=== PATIENT | female | born 1935 | race Caucasian/White ===

== ENCOUNTER 2018-01-16 13:51 | Inpatient (IN) | payer MEDICARE, OTHER ==
--- NOTE | 2018-01-16 14:15 | ER Document Report ---
ED General - General Mode of Arrival: Medic Information source: Patient, Relative <ABDIRIZAK WHITELIS - Last Filed: 01/16/18 15:40> <ROSALBADONNA - Last Filed: 01/16/18 17:26> - General Stated Complaint: WEAKNESS Time Seen by Provider: 01/16/18 14:04 Notes: Patient is an 82 year old female presenting to the emergency department accompanied by son complaining of weakness and altered mental status. Son states the patient has been complaining of a possible bladder infection for a few weeks and has yet to see a provider for it. He also states the patient appears to be very weak onset 2 days ago. Patient states she only feels weak and has had a decreased appetite since her approximately 3 weeks ago. Today, son states he was going to take the patient to urgent care after holiness but she was too weak to get into his car and proceeded to call EMS. Son further states the patient is not behaving like normal at bedside stating she normally has more energy and describes her as a jokester. (CHARLY WHITE) - Related Data Allergies/Adverse Reactions: No Known Allergies Allergy (Verified 01/16/18 14:34) Past Medical History - General Information source: Patient - Social History Smoking Status: Unknown if Ever Smoked Lives with: Alone - Spouse recently as of 01/16/2018 Family History: Reviewed & Not Pertinent - Past Medical History Cardiac Medical History: Reports: Hx Congestive Heart Failure - Question of CHF , Hx Hypercholesterolemia, Hx Hypertension Endocrine Medical History: Reports: Hx Hypothyroidism GI Medical History: Reports: Hx Gastroesophageal Reflux Disease Musculoskeletal Medical History: Reports Hx Gout Psychiatric Medical History: Reports: Hx Depression Past Surgical History: Reports: Hx Orthopedic Surgery - Bilateral total knee replacement, Hx Tubal Ligation, Other - Hysterectomy <CHARLY WHITE - Last Filed: 01/16/18 15:40> Review of Systems - Review of Systems Constitutional: See HPI, Weakness EENT: No symptoms reported Cardiovascular: No symptoms reported Respiratory: No symptoms reported Gastrointestinal: See HPI, Poor appetite Genitourinary: No symptoms reported Female Genitourinary: No symptoms reported Musculoskeletal: No symptoms reported Skin: No symptoms reported Hematologic/Lymphatic: No symptoms reported Neurological/Psychological: See HPI -: Yes All other systems reviewed and negative <CHARLY WHITE - Last Filed: 01/16/18 15:40> Physical Exam - General General appearance: Alert, Other - Appears fatigued In distress: None - HEENT Head: Normocephalic, Atraumatic Eyes: Normal Conjunctiva: Normal Extraocular movements intact: Yes Pupils: PERRL Mucous membranes: Dry Neck: Normal - Respiratory Respiratory status: No respiratory distress Chest status: Nontender Breath sounds: Normal Chest palpation: Normal - Cardiovascular Rhythm: Regular Heart sounds: Normal auscultation Murmur: No Friction rub: No Gallop: None auscultated - Abdominal Inspection: Obese Distension: No distension Bowel sounds: Normal Tenderness: Nontender Organomegaly: No organomegaly - Back Back: Normal - Extremities General upper extremity: Normal ROM General lower extremity: Edema - Lower leg and ankle bilaterally, Normal ROM - Neurological Neuro grossly intact: Yes Cognition: Normal Orientation: AAOx4 [place] Coma Scale Eye Opening: Spontaneous [place] Coma Scale Verbal: Oriented [place] Coma Scale Motor: Obeys Commands [place] Coma Scale Total: 15 Speech: Normal - Psychological Associated symptoms: Normal affect, Normal mood - Skin Skin Temperature: Warm Skin Moisture: Dry Skin Color: Normal <CHARLY WHITE - Last Filed: 01/16/18 15:40> - Vital signs Vitals: Pulse Ox 97 01/16/18 14:03 Course - Laboratory Result Diagrams: 01/16/18 14:20 01/16/18 14:20 <CHARLY WHITE - Last Filed: 01/16/18 15:40> - Laboratory Result Diagrams: 01/16/18 14:20 01/16/18 14:20 - Diagnostic Test Radiology reviewed: Reports reviewed - Chest x-ray does not show an acute process - EKG Interpretation by [facility] EKG shows normal: Sinus rhythm, [place], Intervals, ST-T Waves. abnormal: QRS Complexes - Borderline R-wave progression in the anterior leads Rate: Normal - 71 Rhythm: NSR [place]/QRS: Left axis deviation - Consults Dr. Keita Time consulted: 16:30 Consulted provider: will come to ER <DONNA NAVARRETE - Last Filed: 01/16/18 17:26> - Vital Signs Vital signs: Temp Pulse Resp BP Pulse Ox 18 97/62 L 96 01/16/18 17:03 01/16/18 17:03 01/16/18 17:03 - Laboratory Laboratory results interpreted by me: 01/16/18 01/16/18 01/16/18 14:20 14:20 14:20 WBC 23.8 H RDW 14.6 H Plt Count 84 L Seg Neuts % (Manual) 84 H Lymphocytes % (Manual) 5 L Abs Neuts (Manual) 20.0 H Abs Monocytes (Manual) 2.6 H Sodium 131.8 L Chloride 95 L BUN 41 H Creatinine 2.45 H Est GFR ( Amer) 23 L Est GFR (Non-Af Amer) 19 L Lactic Acid 2.5 H Calcium 8.3 L Total Bilirubin 1.8 H Direct Bilirubin 1.2 H AST 53 H Alkaline Phosphatase 169 H NT-Pro-B Natriuret Pep Total Protein 5.9 L Albumin 3.1 L Urine Protein Urine Blood Urine Urobilinogen Ur Leukocyte Esterase 01/16/18 01/16/18 14:20 15:20 WBC RDW Plt Count Seg Neuts % (Manual) Lymphocytes % (Manual) Abs Neuts (Manual) Abs Monocytes (Manual) Sodium Chloride BUN Creatinine Est GFR ( Amer) Est GFR (Non-Af Amer) Lactic Acid Calcium Total Bilirubin Direct Bilirubin AST Alkaline Phosphatase NT-Pro-B Natriuret Pep 3710 H Total Protein Albumin Urine Protein 100 H Urine Blood LARGE H Urine Urobilinogen 2.0 H Ur Leukocyte Esterase LARGE H Critical Care Note - Critical Care Note Total time excluding time spent on procedures (mins): 40 <DONNA NAVARRETE - Last Filed: 01/16/18 17:26> Discharge <CHARLY WHITE - Last Filed: 01/16/18 15:40> - Discharge Admitting Provider: Hospitalist Unit Admitted: IMCU <DONNA NAVARRETE - Last Filed: 01/16/18 17:26> - Discharge Clinical Impression: Urinary tract infection Qualifiers: Urinary tract infection type: site unspecified Hematuria presence: with hematuria Qualified Code(s): N39.0 - Urinary tract infection, site not specified Leukocytosis Qualifiers: Leukocytosis type: unspecified Qualified Code(s): D72.829 - Elevated white blood cell count, unspecified Hypotension Qualifiers: Hypotension type: unspecified hypotension type Qualified Code(s): I95.9 - Hypotension, unspecified Sepsis Qualifiers: Sepsis type: sepsis due to unspecified organism Qualified Code(s): A41.9 - Sepsis, unspecified organism Depression Qualifiers: Depression Type: unspecified Qualified Code(s): F32.9 - Major depressive disorder, single episode, unspecified Condition: Good Disposition: ADMITTED INPATIENT Scribe Attestation: 01/16/18 15:50 I personally performed the services described in the documentation, reviewed and edited the documentation which was dictated to the scribe in my presence, and it accurately records my words and actions. (DONNA NAVARRETE) Scribe Documentation - Scribe Written by Vamshi:: Vamshi Pickering, 01/16/2018 14:24 acting as scribe for :: Rosalba <CHARLY WHITE - Last Filed: 01/16/18 15:40>
[2018-01-16 14:41] LABS: HEMOGLOBIN 15.2 g/dL (12.0-15.5); MEAN CORPUSCULAR HEMOGLOBIN 28.9 pg (27.0-33.4); MEAN CORPUSCULAR HGB CONC 33.8 g/dL (32.0-36.0); MEAN CORPUSCULAR VOLUME 85 fl (80-97); RED BLOOD COUNT 5.27 10^6/uL (3.72-5.28); RED CELL DISTRIBUTION WIDTH 14.6 % (11.5-14.0); WHITE BLOOD COUNT 23.8 10^3/uL (4.0-10.5)
[2018-01-16 14:49] LABS: VENOUS BLOOD BASE EXCESS -1.5 mmol/L; VENOUS BLOOD HCO3 22.5 mmol/L (20-32); VENOUS BLOOD PCO2 36.1 mmHg (35-63); VENOUS BLOOD PH 7.41 (7.30-7.42)
[2018-01-16 14:57] LABS: ALANINE AMINOTRANSFERASE 39 U/L (9-52); ALBUMIN 3.1 g/dL (3.5-5.0); ALKALINE PHOSPHATASE 169 U/L (38-126); ANION GAP 13 (5-19); ASPARTATE AMINO TRANSFERASE 53 U/L (14-36); BILIRUBIN,DIRECT 1.2 mg/dL (0.0-0.4); BILIRUBIN,TOTAL 1.8 mg/dL (0.2-1.3); BLOOD UREA NITROGEN 41 mg/dL (7-20); CALCIUM 8.3 mg/dL (8.4-10.2); CARBON DIOXIDE 24 mmol/L (22-30); CHLORIDE 95 mmol/L (98-107); CREATINE KINASE 80 U/L (30-135); GLUCOSE 77 mg/dL (75-110); SODIUM 131.8 mmol/L (137-145); TOTAL PROTEIN 5.9 g/dL (6.3-8.2)
[2018-01-16 15:05] LABS: PLATELET COUNT 84 10^3/uL (150-450)
[2018-01-16 15:09] LABS: TROPONIN I 0.015 ng/mL
--- NOTE | 2018-01-16 15:10 | RADIOLOGY REPORT (SQ) ---
EXAM DESCRIPTION: CHEST SINGLE VIEW COMPLETED DATE/TIME: 01/16/2018 2:44 pm REASON FOR STUDY: weak COMPARISON: None. EXAM PARAMETERS: NUMBER OF VIEWS: One view. TECHNIQUE: Single frontal radiographic view of the chest acquired. RADIATION DOSE: NA LIMITATIONS: None. FINDINGS: LUNGS AND PLEURA: No opacities, masses or pneumothorax. No pleural effusion. MEDIASTINUM AND HILAR STRUCTURES: No masses. Contour normal. HEART AND VASCULAR STRUCTURES: Heart normal in size. Normal vasculature. BONES: No acute findings. HARDWARE: None in the chest. OTHER: No other significant finding. IMPRESSION: NO ACUTE RADIOGRAPHIC FINDING IN THE CHEST. TECHNICAL DOCUMENTATION: JOB ID: [id number] [employer]- All Rights Reserved Reading location - IP/workstation name: [email or web address]
[2018-01-16 15:11] LABS: ABSOLUTE LYMPHOCYTES# (MANUAL) 1.2 10^3/uL (0.5-4.7); ABSOLUTE MONOCYTES # (MANUAL) 2.6 10^3/uL (0.1-1.4); BASOPHILS % (MANUAL) 0 % (0-2); EOSINOPHILS % (MANUAL) 0 % (0-6); LYMPHOCYTES % (MANUAL) 5 % (13-45); MONOCYTES % (MANUAL) 11 % (3-13); SEGMENTED NEUTROPHILS % (MAN) 84 % (42-78); TOTAL CELLS COUNTED 100
[2018-01-16 15:14] LABS: ANISOCYTOSIS SLIGHT; PLATELET COMMENT DECREASED; TOXIC GRANULATION 1+; TOXIC VACUOLATION PRESENT
[2018-01-16] MEDS ORDERED: NORMAL SALINE 1000 ML 1,000 ML IV ONE (15:34)
[2018-01-16] MEDS ORDERED: ERTAPENEM SODIUM INJ 1 GM VIAL IV ONE (15:34)
[2018-01-16 16:00] LABS: APPEARANCE,URINE CLOUDY; BILIRUBIN,URINE NEGATIVE (NEGATIVE); COLOR,URINE DARK YELLOW; GLUCOSE, URINE NEGATIVE (NEGATIVE); KETONES,URINE NEGATIVE (NEGATIVE); LEUKOCYTE ESTERASE,URINE LARGE (NEGATIVE); NITRITE,URINE NEGATIVE (NEGATIVE); PROTEIN,URINE 100 mg/dL (NEGATIVE)
[2018-01-16 17:37] LABS: PHOSPHORUS 3.9 mg/dL (2.5-4.5)
--- NOTE | 2018-01-16 18:08 | PDOC H&P ---
History of Present Illness Admission Date/PCP: 01/16/18 17:07 Patient complains of: weakeness, urinary symptoms History of Present Illness: JENNY TERRY is a 82 year old female with history of HTN and depression who presents with worsening urinary symptoms, weakness, and decreased PO intake. Patient states that a few weeks ago she developed urinary frequency and dysuria. Her son gave her cranberry juice over this time period. Feels that her symptoms were improved. However over the last 48 hours, states that she got progressively weaker. Had poor PO intake, chils, and inability to ambulate. States that dysuria has gotten worse. Denies blood in her urine. Also no fevers , CP, SOB, abdominal pain, NV. patient does not have history of frequent/ recurrent UTIs. Of note patients 2 weeks ago. States that her mood is OK and she is coping as well as she can. Daughter and son in law at bedside. Admitted to [facility] under hospitalist care. Past Medical History Cardiac Medical History: Reports: Congestive Heart Failure - Question of CHF, Hyperlipidema, Hypertension Endocrine Medical History: Reports: Hypothyroidism GI Medical History: Reports: Gastroesophageal Reflux Disease Musculoskeltal Medical History: Reports: Gout Psychiatric Medical History: Reports: Depression Past Surgical History Past Surgical History: Reports: Orthopedic Surgery - Bilateral total knee replacement, Tubal Ligation, Other - Hysterectomy Social History Information Source: Patient Lives with: Alone - Spouse recently as of 01/16/2018 Smoking Status: Unknown if Ever Smoked Frequency of Alcohol Use: Rare Hx Recreational Drug Use: No - Advance Directive Resuscitation Status: DNI/DNR Family History Family History: Reviewed & Not Pertinent Parental Family History Reviewed: No Children Family History Reviewed: NA Sibling(s) Family History Reviewed.: NA Medication/Allergy Allergies/Adverse Reactions: No Known Allergies Allergy (Verified 01/16/18 14:34) Review of Systems All systems: reviewed and no additional remarkable complaints except as stated Physical Exam Vital Signs: Temp Pulse Resp BP Pulse Ox 18 97/62 L 96 01/16/18 17:03 01/16/18 17:03 01/16/18 17:03 General appearance: PRESENT: no acute distress, cooperative, obese, other - Pleasant Head exam: PRESENT: atraumatic, normocephalic Mouth exam: PRESENT: moist Neck exam: PRESENT: full ROM. ABSENT: tenderness Respiratory exam: PRESENT: unlabored, other. ABSENT: wheezes Cardiovascular exam: PRESENT: +S1, +S2. ABSENT: tachycardia GI/Abdominal exam: PRESENT: normal bowel sounds, soft. ABSENT: tenderness Extremities exam: PRESENT: +1 edema Neurological exam: PRESENT: alert, awake, CN II-XII grossly intact. ABSENT: aphasic Psychiatric exam: PRESENT: appropriate affect, depressed - Slightly depressed Skin exam: PRESENT: dry, intact Results Laboratory Results: labs reviewed on chart Labs- All tests 24 hr 01/16/18 01/16/18 01/16/18 14:20 14:20 14:20 WBC 23.8 H RBC 5.27 Hgb 15.2 Hct 45.0 MCV 85 MCH 28.9 MCHC 33.8 RDW 14.6 H Plt Count 84 L Total Counted 100 Seg Neutrophils % Not Reportable Seg Neuts % (Manual) 84 H Lymphocytes % Not Reportable Lymphocytes % (Manual) 5 L Monocytes % Not Reportable Monocytes % (Manual) 11 Eosinophils % Not Reportable Eosinophils % (Manual) 0 Basophils % Not Reportable Basophils % (Manual) 0 Absolute Neutrophils Not Reportable Abs Neuts (Manual) 20.0 H Absolute Lymphocytes Not Reportable Abs Lymphs (Manual) 1.2 Absolute Monocytes Not Reportable Abs Monocytes (Manual) 2.6 H Absolute Eosinophils Not Reportable Absolute Eos (Manual) 0.0 Absolute Basophils Not Reportable Abs Basophils (Manual) 0.0 Toxic Granulation 1+ Toxic Vacuolation PRESENT Platelet Comment DECREASED Anisocytosis SLIGHT VBG pH VBG pCO2 VBG HCO3 VBG Base Excess Sodium 131.8 L Potassium 4.0 Chloride 95 L Carbon Dioxide 24 Anion Gap 13 BUN 41 H Creatinine 2.45 H Est GFR ( Amer) 23 L Est GFR (Non-Af Amer) 19 L Glucose 77 Lactic Acid 2.5 H Calcium 8.3 L Phosphorus Magnesium Total Bilirubin 1.8 H Direct Bilirubin 1.2 H Neonat Total Bilirubin Not Reportable Neonat Direct Bilirubin Not Reportable Neonat Indirect Bili Not Reportable AST 53 H ALT 39 Alkaline Phosphatase 169 H Creatine Kinase 80 Troponin I NT-Pro-B Natriuret Pep Total Protein 5.9 L Albumin 3.1 L Urine Color Urine Appearance Urine pH Ur Specific [place] Urine Protein Urine Glucose (UA) Urine Ketones Urine Blood Urine Nitrite Urine Bilirubin Urine Urobilinogen Ur Leukocyte Esterase Urine WBC (Auto) Urine RBC (Auto) Urine Bacteria (Auto) Urine WBC Clumps Squamous Epi Cells Auto U Non-Squamous Epis Auto Urine Mucus (Auto) Urine Ascorbic Acid 01/16/18 01/16/18 01/16/18 14:20 14:20 14:20 WBC RBC Hgb Hct MCV MCH MCHC RDW Plt Count Total Counted Seg Neutrophils % Seg Neuts % (Manual) Lymphocytes % Lymphocytes % (Manual) Monocytes % Monocytes % (Manual) Eosinophils % Eosinophils % (Manual) Basophils % Basophils % (Manual) Absolute Neutrophils Abs Neuts (Manual) Absolute Lymphocytes Abs Lymphs (Manual) Absolute Monocytes Abs Monocytes (Manual) Absolute Eosinophils Absolute Eos (Manual) Absolute Basophils Abs Basophils (Manual) Toxic Granulation Toxic Vacuolation Platelet Comment Anisocytosis VBG pH 7.41 VBG pCO2 36.1 VBG HCO3 22.5 VBG Base Excess -1.5 Sodium Potassium Chloride Carbon Dioxide Anion Gap BUN Creatinine Est GFR ( Amer) Est GFR (Non-Af Amer) Glucose Lactic Acid Calcium Phosphorus 3.9 Magnesium 1.3 L Total Bilirubin Direct Bilirubin Neonat Total Bilirubin Neonat Direct Bilirubin Neonat Indirect Bili AST ALT Alkaline Phosphatase Creatine Kinase Troponin I 0.015 NT-Pro-B Natriuret Pep 3710 H Total Protein Albumin Urine Color Urine Appearance Urine pH Ur Specific [place] Urine Protein Urine Glucose (UA) Urine Ketones Urine Blood Urine Nitrite Urine Bilirubin Urine Urobilinogen Ur Leukocyte Esterase Urine WBC (Auto) Urine RBC (Auto) Urine Bacteria (Auto) Urine WBC Clumps Squamous Epi Cells Auto U Non-Squamous Epis Auto Urine Mucus (Auto) Urine Ascorbic Acid 01/16/18 15:20 WBC RBC Hgb Hct MCV MCH MCHC RDW Plt Count Total Counted Seg Neutrophils % Seg Neuts % (Manual) Lymphocytes % Lymphocytes % (Manual) Monocytes % Monocytes % (Manual) Eosinophils % Eosinophils % (Manual) Basophils % Basophils % (Manual) Absolute Neutrophils Abs Neuts (Manual) Absolute Lymphocytes Abs Lymphs (Manual) Absolute Monocytes Abs Monocytes (Manual) Absolute Eosinophils Absolute Eos (Manual) Absolute Basophils Abs Basophils (Manual) Toxic Granulation Toxic Vacuolation Platelet Comment Anisocytosis VBG pH VBG pCO2 VBG HCO3 VBG Base Excess Sodium Potassium Chloride Carbon Dioxide Anion Gap BUN Creatinine Est GFR ( Amer) Est GFR (Non-Af Amer) Glucose Lactic Acid Calcium Phosphorus Magnesium Total Bilirubin Direct Bilirubin Neonat Total Bilirubin Neonat Direct Bilirubin Neonat Indirect Bili AST ALT Alkaline Phosphatase Creatine Kinase Troponin I NT-Pro-B Natriuret Pep Total Protein Albumin Urine Color DARK YELLOW Urine Appearance CLOUDY Urine pH 5.0 Ur Specific [place] 1.020 Urine Protein 100 H Urine Glucose (UA) NEGATIVE Urine Ketones NEGATIVE Urine Blood LARGE H Urine Nitrite NEGATIVE Urine Bilirubin NEGATIVE Urine Urobilinogen 2.0 H Ur Leukocyte Esterase LARGE H Urine WBC (Auto) >182 Urine RBC (Auto) >182 Urine Bacteria (Auto) 1+ Urine WBC Clumps MANY Squamous Epi Cells Auto 2 U Non-Squamous Epis Auto 2 Urine Mucus (Auto) RARE Urine Ascorbic Acid NEGATIVE Impressions: Chest X-Ray 01/16/18 14:15 IMPRESSION: NO ACUTE RADIOGRAPHIC FINDING IN THE CHEST. Assessment & Plan - Diagnosis (1) Urinary tract infection Qualifiers: Urinary tract infection type: site unspecified Hematuria presence: with hematuria Qualified Code(s): N39.0 - Urinary tract infection, site not specified; R31.9 - Hematuria, unspecified; R31.9 - Hematuria, unspecified Is this a current diagnosis for this admission?: Yes Plan: History and UA consistent with UTI - Will follow Urine cx for sensitivities and speciation - Received Ertapenem * 1 dose in ED. Started on Ceftriaxone IV. - No history of MRSA. - If patient decompensates would broaden coverage - Blood culture obtained (2) KAMI (acute kidney injury) Is this a current diagnosis for this admission?: Yes Plan: Unclear baseline. Likely pre-renal given recent poor PO intake. Will give IVF. Avoid overhydration given questionable history of CHF (3) Depression Qualifiers: Depression Type: unspecified Qualified Code(s): F32.9 - Major depressive disorder, single episode, unspecified (4) Hypotension Qualifiers: Hypotension type: unspecified hypotension type Qualified Code(s): I95.9 - Hypotension, unspecified Is this a current diagnosis for this admission?: Yes Plan: Likely due to infection and poor PO intake - GIve IVF. No indication for pressor support at this time (5) Leukocytosis Qualifiers: Leukocytosis type: unspecified Qualified Code(s): D72.829 - Elevated white blood cell count, unspecified Is this a current diagnosis for this admission?: Yes Plan: Secondary to infection - Treatment per above - Repeat CBC and lactate in AM (6) Troponin level elevated Is this a current diagnosis for this admission?: Yes Plan: No active CP. - Likely secondary to acute infection - Will check 2nd troponin. CTM - Time Time Spent: Greater than 70 Minutes Critical Time spent with patient: 15-24 minutes Anticipated discharge: Home with Homehealth, SNF - Will have PT evaluation - Inpatient Certification Medical Necessity: Need for IV Antibiotics
[2018-01-16] MEDS: NORMAL SALINE 1000 ML 1,000 ML IV SCH ×2 (18:10→18:11)
[2018-01-16] MEDS: ACETAMINOPHEN 325 MG TABLET PO PRN (18:47)
[2018-01-16 21:27] LABS: CREATINE KINASE MB 2.41 ng/mL (<4.55); TROPONIN I 0.021 ng/mL
[2018-01-16] MEDS: HEPARIN SOD (PORCINE) 5,000 UNIT/ML 1 ML SYRINGE SUBCUT SCH (22:26)
[2018-01-17 03:23] LABS: HEMATOCRIT 40.6 % (36.0-47.0); HEMOGLOBIN 13.7 g/dL (12.0-15.5); MEAN CORPUSCULAR HEMOGLOBIN 28.8 pg (27.0-33.4); MEAN CORPUSCULAR HGB CONC 33.8 g/dL (32.0-36.0); MEAN CORPUSCULAR VOLUME 85 fl (80-97); RED BLOOD COUNT 4.77 10^6/uL (3.72-5.28); RED CELL DISTRIBUTION WIDTH 14.5 % (11.5-14.0)
[2018-01-17 03:36] LABS: ALANINE AMINOTRANSFERASE 41 U/L (9-52); ALBUMIN 2.5 g/dL (3.5-5.0); ALKALINE PHOSPHATASE 139 U/L (38-126); ANION GAP 12 (5-19); ASPARTATE AMINO TRANSFERASE 59 U/L (14-36); BILIRUBIN,DIRECT 0.9 mg/dL (0.0-0.4); BILIRUBIN,TOTAL 1.1 mg/dL (0.2-1.3); BLOOD UREA NITROGEN 46 mg/dL (7-20); CALCIUM 7.7 mg/dL (8.4-10.2); CARBON DIOXIDE 20 mmol/L (22-30); CHLORIDE 98 mmol/L (98-107); CREATINE KINASE 342 U/L (30-135); GLUCOSE 54 mg/dL (75-110); POTASSIUM 4.2 mmol/L (3.6-5.0); SODIUM 130.3 mmol/L (137-145); TOTAL PROTEIN 5.1 g/dL (6.3-8.2)
[2018-01-17 03:43] LABS: PLATELET COUNT 65 10^3/uL (150-450)
[2018-01-17 03:45] LABS: ABSOLUTE LYMPHOCYTES# (MANUAL) 0.5 10^3/uL (0.5-4.7); ABSOLUTE MONOCYTES # (MANUAL) 3.1 10^3/uL (0.1-1.4); ABSOLUTE NEUTROPHILS# (MANUAL) 20.4 10^3/uL (1.7-8.2); BASOPHILS % (MANUAL) 0 % (0-2); EOSINOPHILS % (MANUAL) 0 % (0-6); LYMPHOCYTES % (MANUAL) 2 % (13-45); MONOCYTES % (MANUAL) 13 % (3-13); SEGMENTED NEUTROPHILS % (MAN) 85 % (42-78); TOTAL CELLS COUNTED 100
[2018-01-17 03:48] LABS: CREATINE KINASE MB 1.36 ng/mL (<4.55); TROPONIN I 0.022 ng/mL
[2018-01-17 03:49] LABS: PLATELET COMMENT DECREASED; RBC MORPHOLOGY COMMENT NORMO-CYTIC/CHROMIC; TOXIC VACUOLATION PRESENT
[2018-01-17] MEDS: NORMAL SALINE 1000 ML 1,000 ML IV SCH ×2 (04:05→18:13)
[2018-01-17] MEDS: HEPARIN SOD (PORCINE) 5,000 UNIT/ML 1 ML SYRINGE SUBCUT SCH ×3 (05:08→21:31)
[2018-01-17] MEDS: CEFTRIAXONE SODIUM 1,000 MG in DEXTROSE 5%-WATER 50 ML IV SCH (09:09)
[2018-01-17] MEDS ORDERED: CEFTRIAXONE 1 GM/D5W RTU 1 GM/50 ML RTUPB IV SCH (10:00)
[2018-01-17 10:01] LABS: CREATINE KINASE MB 0.96 ng/mL (<4.55); TROPONIN I 0.024 ng/mL
--- NOTE | 2018-01-17 10:30 | PDOC PROGRESS REPORT ---
Subjective Progress Note for:: 01/17/18 Subjective:: I seen patient while she is resting in bed. She is awake alert oriented. She is not in pain or any form of acute cardiorespiratory distress. Patient admitted for urinary tract infection and acute kidney injury. Her blood and urine culture grew gram-negative rods. Sensitivity pattern is pending. Currently patient has been on ceftriaxone. Reason For Visit: SEPSIS,UTI,ARF Physical Exam Vital Signs: Temp Pulse Resp BP Pulse Ox 98.8 F 76 16 139/54 H 98 01/17/18 07:34 01/17/18 08:56 01/17/18 08:56 01/17/18 07:34 01/17/18 08:56 Intake & Output 01/16/18 01/17/18 01/18/18 06:59 06:59 06:59 Intake Total 1999 Balance 1999 Weight 86.5 kg General appearance: PRESENT: no acute distress Head exam: PRESENT: atraumatic Eye exam: PRESENT: conjunctiva pink Mouth exam: PRESENT: moist Neck exam: ABSENT: carotid bruit, JVD, lymphadenopathy, thyromegaly Respiratory exam: PRESENT: clear to auscultation cely. ABSENT: rales, rhonchi, wheezes Cardiovascular exam: PRESENT: RRR. ABSENT: diastolic murmur, rubs, systolic murmur GI/Abdominal exam: PRESENT: normal bowel sounds, soft. ABSENT: distended, guarding, mass, organolmegaly, rebound, tenderness Extremities exam: PRESENT: full ROM. ABSENT: calf tenderness, clubbing, pedal edema Neurological exam: PRESENT: alert, awake, oriented to time, oriented to situation Results Laboratory Results: 01/17/18 03:05 01/17/18 03:05 01/16/18 01/17/18 01/17/18 18:00 03:05 03:05 WBC 24.0 H RBC 4.77 Hgb 13.7 Hct 40.6 MCV 85 MCH 28.8 MCHC 33.8 RDW 14.5 H Plt Count 65 L Seg Neutrophils % Not Reportable Lymphocytes % Not Reportable Monocytes % Not Reportable Eosinophils % Not Reportable Basophils % Not Reportable Absolute Neutrophils Not Reportable Absolute Lymphocytes Not Reportable Absolute Monocytes Not Reportable Absolute Eosinophils Not Reportable Absolute Basophils Not Reportable Sodium 130.3 L Potassium 4.2 Chloride 98 Carbon Dioxide 20 L Anion Gap 12 BUN 46 H Creatinine 2.36 H Est GFR ( Amer) 24 L Est GFR (Non-Af Amer) 20 L Glucose 54 L Lactic Acid 1.7 Calcium 7.7 L Total Bilirubin 1.1 AST 59 H ALT 41 Alkaline Phosphatase 139 H Total Protein 5.1 L Albumin 2.5 L 01/17/18 03:05 WBC RBC Hgb Hct MCV MCH MCHC RDW Plt Count Seg Neutrophils % Lymphocytes % Monocytes % Eosinophils % Basophils % Absolute Neutrophils Absolute Lymphocytes Absolute Monocytes Absolute Eosinophils Absolute Basophils Sodium Potassium Chloride Carbon Dioxide Anion Gap BUN Creatinine Est GFR ( Amer) Est GFR (Non-Af Amer) Glucose Lactic Acid 1.3 Calcium Total Bilirubin AST ALT Alkaline Phosphatase Total Protein Albumin 01/16/18 01/16/18 01/17/18 20:45 20:45 03:05 Creatine Kinase 364 H CK-MB (CK-2) 2.41 1.36 Troponin I 0.021 0.022 01/17/18 01/17/18 01/17/18 03:05 09:05 09:05 Creatine Kinase 342 H 264 H CK-MB (CK-2) 0.96 Troponin I 0.024 Impressions: Chest X-Ray 01/16/18 14:15 IMPRESSION: NO ACUTE RADIOGRAPHIC FINDING IN THE CHEST. Assessment & Plan - Diagnosis (1) Gram-negative bacteremia Is this a current diagnosis for this admission?: Yes Plan: Patient admitted for weakness and dysuria. Her blood culture grew gram- negative rods. Patient has been on ceftriaxone and will adjust antibiotics based on her clinical response and sensitivity pattern. (2) UTI (urinary tract infection) Qualifiers: Indwelling urinary catheter type: unspecified Is this a current diagnosis for this admission?: Yes Plan: Urine culture grew gram-negative rods. We will continue ceftriaxone until sensitivity pattern report. (3) KAMI (acute kidney injury) Is this a current diagnosis for this admission?: Yes Plan: Most probably prerenal azotemia. We do not know her baseline kidney function. Patient is being hydrated cautiously. (4) Leukocytosis Qualifiers: Leukocytosis type: unspecified Qualified Code(s): D72.829 - Elevated white blood cell count, unspecified Is this a current diagnosis for this admission?: Yes Plan: Trending down. (5) Troponin level elevated Is this a current diagnosis for this admission?: Yes Plan: Is a borderline elevation most probably due to demand ischemia. (6) Hypothyroidism Is this a current diagnosis for this admission?: Yes Plan: Continue Synthroid
[2018-01-17] MEDS: IPRATROPIUM/ALBUTEROL 0.5-2.5 MG/3 ML AMPUL NEB PRN (14:07)
[2018-01-17] MEDS: ACETAMINOPHEN 325 MG TABLET PO PRN (19:43)
[2018-01-18 05:24] LABS: HEMATOCRIT 43.1 % (36.0-47.0); HEMOGLOBIN 14.7 g/dL (12.0-15.5); MEAN CORPUSCULAR HGB CONC 34.1 g/dL (32.0-36.0); MEAN CORPUSCULAR VOLUME 85 fl (80-97); RED BLOOD COUNT 5.07 10^6/uL (3.72-5.28); RED CELL DISTRIBUTION WIDTH 14.7 % (11.5-14.0); WHITE BLOOD COUNT 17.9 10^3/uL (4.0-10.5)
[2018-01-18] MEDS: HEPARIN SOD (PORCINE) 5,000 UNIT/ML 1 ML SYRINGE SUBCUT SCH ×3 (05:24→21:06)
[2018-01-18 05:56] LABS: ABSOLUTE LYMPHOCYTES# (MANUAL) 0.5 10^3/uL (0.5-4.7); ABSOLUTE MONOCYTES # (MANUAL) 1.6 10^3/uL (0.1-1.4); ABSOLUTE NEUTROPHILS# (MANUAL) 15.8 10^3/uL (1.7-8.2); BASOPHILS % (MANUAL) 0 % (0-2); EOSINOPHILS % (MANUAL) 0 % (0-6); LYMPHOCYTES % (MANUAL) 3 % (13-45); MONOCYTES % (MANUAL) 9 % (3-13); SEGMENTED NEUTROPHILS % (MAN) 88 % (42-78); TOTAL CELLS COUNTED 100
[2018-01-18 05:57] LABS: RBC MORPHOLOGY COMMENT NORMO-CYTIC/CHROMIC
[2018-01-18 05:58] LABS: PLATELET COMMENT DECREASED; TOXIC VACUOLATION PRESENT
[2018-01-18 06:53] LABS: PLATELET COUNT 64 10^3/uL (150-450)
--- NOTE | 2018-01-18 09:41 | XCELERA REPORT ---
[address] [address] Transthoracic Echocardiogram Report Name: JENNY TERRY Age: 82 yrs Gender: Female : 1935 Patient Status: Inpatient Patient Location: [address] [place] [address] Study Date: 01/18/2018 08:37 AM Procedure: A complete two-dimensional transthoracic echocardiogram was performed (2D, M-mode, spectral and color flow Doppler). The study was technically adequate with some images being suboptimal in quality. Reason For Study: CHF Ordering Physician: LOLITA KNIGHT Performed By: Marilyn Amezquita Interpretation Summary The left ventricular ejection fraction is normal. There is borderline concentric left ventricular hypertrophy. The left ventricle is grossly normal size. Doppler measurements suggest pseudonormalized left ventricular relaxation, which is associated with grade II/IV or mild to moderate diastolic dysfunction Wall motion cannot be accurately commented on, but no definite regional wall motion abnormalities noted. The right ventricle is mildly dilated. The right ventricle appears to be hypertrophied The right ventricular systolic function is normal. The right atrium is mildly dilated. The left atrial size is normal. There is no mitral valve stenosis. There is a trace amount of mitral regurgitation There is no aortic valve stenosis No aortic regurgitation is present. There is a mild amount of tricuspid regurgitation There is mild pulmonary hypertension by echo There is no pericardial effusion. MMode/2D Measurements & Calculations RVDd: 3.4 cm LVIDd: 4.4 cm FS: 34.4 % Ao root diam: 2.7 cm IVSd: 1.1 cm LVIDs: 2.9 cm EDV(Teich): 85.6 ml Ao root area: 5.6 cm2 LVPWd: 1.0 cm ESV(Teich): 31.1 ml EF(Teich): 63.7 % LVOT diam: 1.6 cm LVOT area: 2.1 cm2 Doppler Measurements & Calculations MV E max zeny: MV dec slope: Ao V2 max: LV V1 max P.5 cm/sec 110.2 cm/sec 3.7 mmHg MV A max zeny: 211.3 cm/sec2 Ao max PG: LV V1 max: 110.2 cm/sec MV dec time: 5.0 mmHg 96.3 cm/sec MV E/A: 0.51 0.27 sec HAL(V,D): 1.8 cm2 PA V2 max: TR max zeny: 85.9 cm/sec 274.2 cm/sec PA max P.0 mmHg TR max P.2 mmHg Left Ventricle The left ventricle is grossly normal size. There is borderline concentric left ventricular hypertrophy. The left ventricular ejection fraction is normal. Doppler measurements suggest pseudonormalized left ventricular relaxation, which is associated with grade II/IV or mild to moderate diastolic dysfunction. Wall motion cannot be accurately commented on, but no definite regional wall motion abnormalities noted. Right Ventricle The right ventricle is mildly dilated. The right ventricle appears to be hypertrophied. The right ventricular systolic function is normal. Atria The right atrium is mildly dilated. The left atrial size is normal. Interarterial septum not well visualized and not well dopplered. Cannot comment on ASD/PFO presence. Mitral Valve The mitral valve is grossly normal. There is no mitral valve stenosis. There is a trace amount of mitral regurgitation. Aortic Valve The aortic valve is not well visualized secondary to technical limitations. There is no aortic valve stenosis. No aortic regurgitation is present. Tricuspid Valve The tricuspid valve is not well visualized, but is grossly normal. There is no tricuspid stenosis. There is a mild amount of tricuspid regurgitation. There is mild pulmonary hypertension by echo. Best estimated RVSP is approximately 40 mm/Hg. Pulmonic Valve The pulmonic valve is not well visualized. Great Vessels The aortic root is not well visualized but is probably normal size. The inferior vena cava was not well visualized. Effusions There is no pericardial effusion. : LOLITA KNIGHT > Kierra Rodriguez
[2018-01-18] MEDS ORDERED: (PENDING PHARMACY ID) (Escitalopram Oxalate [Lexapro] 10 MG) PO SCH (10:00)
[2018-01-18] MEDS ORDERED: (PENDING PHARMACY ID) (Calcium Carbonate/Vitamin D3 [Calcium 600 + Vit D 400 Tablet] 1 TAB PO SCH (10:00)
[2018-01-18] MEDS ORDERED: ACEBUTOLOL HCL 400 MG PO SCH (10:00)
--- NOTE | 2018-01-18 10:06 | EKG REPORT ---
SEVERITY:- BORDERLINE ECG - SINUS RHYTHM BORDERLINE LEFT AXIS DEVIATION BORDERLINE R WAVE PROGRESSION, ANTERIOR LEADS : Confirmed by: Kierra Rodriguez 18-Jan-2018 10:05:53
[2018-01-18 10:15] LABS: ABSOLUTE LYMPHOCYTES (AUTO) 1.2 10^3/uL (0.5-4.7); ABSOLUTE MONOCYTES (AUTO) 2.3 10^3/uL (0.1-1.4); ABSOLUTE NEUT (AUTO) 13.4 10^3/uL (1.7-8.2); BASOPHILS % (AUTO) 0.2 % (0-2); EOSINOPHILS % (AUTO) 0.2 % (0-6); HEMATOCRIT 42.3 % (36.0-47.0); LYMPHOCYTES % (AUTO) 6.8 % (13-45); MEAN CORPUSCULAR HEMOGLOBIN 28.1 pg (27.0-33.4); MEAN CORPUSCULAR HGB CONC 33.1 g/dL (32.0-36.0); MEAN CORPUSCULAR VOLUME 85 fl (80-97); MONOCYTES % (AUTO) 13.5 % (3-13); RED BLOOD COUNT 4.98 10^6/uL (3.72-5.28); RED CELL DISTRIBUTION WIDTH 14.6 % (11.5-14.0); SEGMENTED NEUTROPHILS % (AUTO) 79.3 % (42-78); TOTAL CELLS COUNTED % (AUTO) 100 %
[2018-01-18 10:50] LABS: ANION GAP 11 (5-19); BLOOD UREA NITROGEN 50 mg/dL (7-20); CALCIUM 7.7 mg/dL (8.4-10.2); CARBON DIOXIDE 19 mmol/L (22-30); CHLORIDE 99 mmol/L (98-107); GLUCOSE 104 mg/dL (75-110); PLATELET COUNT 67 10^3/uL (150-450); POTASSIUM 3.8 mmol/L (3.6-5.0); SODIUM 129.4 mmol/L (137-145)
[2018-01-18] MEDS ORDERED: ESCITALOPRAM OXALATE 10 MG TABLET PO ONE (11:00)
[2018-01-18] MEDS ORDERED: CALCIUM CARBONATE 250 MG/VITAMIN D3 125 UNIT TABLET PO ONE (11:00)
[2018-01-18] MEDS: CEFTRIAXONE SODIUM 1,000 MG in DEXTROSE 5%-WATER 50 ML IV SCH (11:11)
[2018-01-18] MEDS: BUPROPION HCL 75 MG TABLET PO SCH ×2 (11:19→23:55)
[2018-01-18] MEDS: POLYETHYLENE GLYCOL 3350 POWDER 17 GM/1 PACKET PO SCH (11:21)
--- NOTE | 2018-01-18 12:06 | PDOC PROGRESS REPORT ---
Subjective Progress Note for:: 01/18/18 Subjective:: No significant change overnight. Patient is able to eat and tolerate well. No fever, nausea or vomiting. Her white cell count is trending down. Reason For Visit: SEPSIS,UTI,ARF Physical Exam Vital Signs: Temp Pulse Resp BP Pulse Ox 99.3 F 83 20 120/64 99 01/18/18 07:34 01/18/18 07:34 01/18/18 07:34 01/18/18 07:34 01/18/18 07:34 Intake & Output 01/17/18 01/18/18 01/19/18 06:59 06:59 06:59 Intake Total 1999 235 Balance 1999 235 Weight 86.5 kg 88.9 kg General appearance: PRESENT: no acute distress Head exam: PRESENT: atraumatic, normocephalic Eye exam: PRESENT: conjunctiva pink Mouth exam: PRESENT: moist Neck exam: ABSENT: carotid bruit, JVD, lymphadenopathy, thyromegaly Respiratory exam: PRESENT: clear to auscultation cely. ABSENT: rales, rhonchi, wheezes Cardiovascular exam: PRESENT: RRR. ABSENT: diastolic murmur, rubs, systolic murmur GI/Abdominal exam: PRESENT: normal bowel sounds, soft. ABSENT: distended, guarding, mass, organolmegaly, rebound, tenderness Extremities exam: PRESENT: full ROM. ABSENT: calf tenderness, clubbing, pedal edema Neurological exam: PRESENT: alert, awake, oriented to time, oriented to situation Results Laboratory Results: 01/18/18 09:20 01/18/18 09:20 01/18/18 01/18/18 01/18/18 04:04 09:20 09:20 WBC 17.9 H 17.0 H RBC 5.07 4.98 Hgb 14.7 14.0 Hct 43.1 42.3 MCV 85 85 MCH 29.0 28.1 MCHC 34.1 33.1 RDW 14.7 H 14.6 H Plt Count 64 L 67 L Seg Neutrophils % Not Reportable 79.3 H Lymphocytes % Not Reportable 6.8 L Monocytes % Not Reportable 13.5 H Eosinophils % Not Reportable 0.2 Basophils % Not Reportable 0.2 Absolute Neutrophils Not Reportable 13.4 H Absolute Lymphocytes Not Reportable 1.2 Absolute Monocytes Not Reportable 2.3 H Absolute Eosinophils Not Reportable 0.0 Absolute Basophils Not Reportable 0.0 Sodium 129.4 L Potassium 3.8 Chloride 99 Carbon Dioxide 19 L Anion Gap 11 BUN 50 H Creatinine 1.93 H Est GFR ( Amer) 30 L Est GFR (Non-Af Amer) 25 L Glucose 104 Calcium 7.7 L 01/16/18 01/16/18 01/17/18 20:45 20:45 03:05 Creatine Kinase 364 H CK-MB (CK-2) 2.41 1.36 Troponin I 0.021 0.022 01/17/18 01/17/18 01/17/18 03:05 09:05 09:05 Creatine Kinase 342 H 264 H CK-MB (CK-2) 0.96 Troponin I 0.024 Impressions: Chest X-Ray 01/16/18 14:15 IMPRESSION: NO ACUTE RADIOGRAPHIC FINDING IN THE CHEST. Assessment & Plan - Diagnosis (1) Gram-negative bacteremia Is this a current diagnosis for this admission?: Yes Plan: Repeat blood and urine cultures requested. Continue current antibiotic. (2) UTI (urinary tract infection) Qualifiers: Indwelling urinary catheter type: unspecified Is this a current diagnosis for this admission?: Yes Plan: Urine culture grew gram-negative rods. We will continue ceftriaxone until sensitivity pattern report. (3) KAMI (acute kidney injury) Is this a current diagnosis for this admission?: Yes Plan: Improving (4) Leukocytosis Qualifiers: Leukocytosis type: unspecified Qualified Code(s): D72.829 - Elevated white blood cell count, unspecified Is this a current diagnosis for this admission?: Yes Plan: Trending down white cell count at admission was 23.82 date is 17. (5) Troponin level elevated Is this a current diagnosis for this admission?: Yes Plan: Is a borderline elevation most probably due to demand ischemia. (6) Hypothyroidism Is this a current diagnosis for this admission?: Yes Plan: Continue Synthroid (7) Depression Qualifiers: Major depression episode severity: unspecified Is this a current diagnosis for this admission?: Yes Plan: Continue her home medications. - Time Time Spent with patient: 25-34 minutes
[2018-01-18] MEDS: IPRATROPIUM/ALBUTEROL 0.5-2.5 MG/3 ML AMPUL NEB PRN (14:49)
[2018-01-18] MEDS: ACETAMINOPHEN 325 MG TABLET PO PRN ×2 (15:45→20:14)
[2018-01-18 17:15] LABS: CREATINE KINASE MB 1.71 ng/mL (<4.55)
[2018-01-18 17:31] LABS: TROPONIN I 0.37 ng/mL
[2018-01-18] MEDS ORDERED: FUROSEMIDE INJ/PF 100 MG/10 ML SDV IV ONE (19:00)
[2018-01-18] MEDS: MELATONIN 3 MG TABLET PO SCH (21:10)
[2018-01-18] MEDS: AMITRIPTYLINE HCL 25 MG TABLET PO SCH (21:10)
--- NOTE | 2018-01-18 22:18 | EKG REPORT ---
SEVERITY:- ABNORMAL ECG - SINUS RHYTHM PROBABLE INFERIOR INFARCT, AGE INDETERMINATE CONSIDER ANTERIOR INFARCT : Confirmed by: Kierra Rodriguez 18-Jan-2018 22:17:01
[2018-01-19 04:59] LABS: HEMOGLOBIN 14.1 g/dL (12.0-15.5); MEAN CORPUSCULAR HEMOGLOBIN 28.7 pg (27.0-33.4); MEAN CORPUSCULAR HGB CONC 33.6 g/dL (32.0-36.0); MEAN CORPUSCULAR VOLUME 86 fl (80-97); RED CELL DISTRIBUTION WIDTH 15.1 % (11.5-14.0); WHITE BLOOD COUNT 15.1 10^3/uL (4.0-10.5)
[2018-01-19 05:13] LABS: ANION GAP 13 (5-19); BLOOD UREA NITROGEN 56 mg/dL (7-20); CALCIUM 8.2 mg/dL (8.4-10.2); CARBON DIOXIDE 21 mmol/L (22-30); CHLORIDE 98 mmol/L (98-107); GLUCOSE 92 mg/dL (75-110); SODIUM 131.7 mmol/L (137-145)
[2018-01-19 05:24] LABS: PLATELET COUNT 58 10^3/uL (150-450)
[2018-01-19 05:26] LABS: ABSOLUTE LYMPHOCYTES# (MANUAL) 1.2 10^3/uL (0.5-4.7); ABSOLUTE MONOCYTES # (MANUAL) 1.5 10^3/uL (0.1-1.4); ABSOLUTE NEUTROPHILS# (MANUAL) 12.1 10^3/uL (1.7-8.2); BASOPHILS % (MANUAL) 0 % (0-2); EOSINOPHILS % (MANUAL) 2 % (0-6); LYMPHOCYTES % (MANUAL) 6 % (13-45); MONOCYTES % (MANUAL) 10 % (3-13); SEGMENTED NEUTROPHILS % (MAN) 80 % (42-78); TOTAL CELLS COUNTED 100
[2018-01-19 05:27] LABS: ANISOCYTOSIS SLIGHT; PLATELET COMMENT DECREASED; POIKILOCYTOSIS SLIGHT; TEAR DROP CELLS SLIGHT
[2018-01-19] MEDS: HEPARIN SOD (PORCINE) 5,000 UNIT/ML 1 ML SYRINGE SUBCUT SCH (05:46)
--- NOTE | 2018-01-19 09:05 | RADIOLOGY REPORT (SQ) ---
EXAM DESCRIPTION: CHEST SINGLE VIEW COMPLETED DATE/TIME: 01/19/2018 8:51 am REASON FOR STUDY: sob COMPARISON: Chest film 01/16/2018 EXAM PARAMETERS: NUMBER OF VIEWS: One view. TECHNIQUE: Single frontal radiographic view of the chest acquired. RADIATION DOSE: NA LIMITATIONS: None. FINDINGS: LUNGS AND PLEURA: No opacities, masses or pneumothorax. No pleural effusion. MEDIASTINUM AND HILAR STRUCTURES: No masses. Contour normal. HEART AND VASCULAR STRUCTURES: Heart normal in size. Normal vasculature. BONES: No acute findings. HARDWARE: None in the chest. OTHER: No other significant finding. IMPRESSION: NO ACUTE RADIOGRAPHIC FINDING IN THE CHEST. TECHNICAL DOCUMENTATION: JOB ID: [id number] [employer] All Rights Reserved Reading location - IP/workstation name: [email or web address]
[2018-01-19] MEDS: ESCITALOPRAM OXALATE 10 MG TABLET PO SCH (09:08)
[2018-01-19] MEDS: CALCIUM CARBONATE 250 MG/VITAMIN D3 125 UNIT TABLET PO SCH (09:08)
[2018-01-19] MEDS: CEFTRIAXONE SODIUM 1,000 MG in DEXTROSE 5%-WATER 50 ML IV SCH (09:09)
[2018-01-19] MEDS: POLYETHYLENE GLYCOL 3350 POWDER 17 GM/1 PACKET PO SCH (09:15)
[2018-01-19] MEDS: IPRATROPIUM/ALBUTEROL 0.5-2.5 MG/3 ML AMPUL NEB PRN (10:40)
[2018-01-19] MEDS ORDERED: ASPIRIN 81 MG TABLET, ENT COATED PO ONE (11:00)
[2018-01-19] MEDS: BUPROPION HCL 75 MG TABLET PO SCH ×2 (11:36→23:08)
--- NOTE | 2018-01-19 11:37 | PDOC PROGRESS REPORT ---
Subjective Progress Note for:: 01/19/18 Subjective:: This morning I seen and examined the patient while she sitting on chair. She is awake alert and oriented. She reports feeling better. No chest pain, fever , nausea or vomiting. She is able to eat and tolerate food. The final blood culture result is reported and the gram-negative angeline is found to be E. coli which is pansensitive. And repeat blood culture grew letting. Her blood work shows steadily trending down WBC from 23,000-15. But her creatinine is mildly elevated from 1.98-2.22. This morning she has portable chest x-ray and reported as normal cardiopulmonary pathology. Reason For Visit: SEPSIS,UTI,ARF Physical Exam Vital Signs: Temp Pulse Resp BP Pulse Ox 98.7 F 73 18 134/52 H 96 01/19/18 07:33 01/19/18 10:40 01/19/18 10:40 01/19/18 07:33 01/19/18 10:40 Intake & Output 01/18/18 01/19/18 01/20/18 06:59 06:59 06:59 Intake Total 2351 692 Output Total 1400 Balance 2351 -708 Weight 88.9 kg 88.7 kg 88.7 kg General appearance: PRESENT: no acute distress Respiratory exam: PRESENT: crackles - Coarse crackles bilaterally Cardiovascular exam: PRESENT: RRR. ABSENT: diastolic murmur, rubs, systolic murmur GI/Abdominal exam: PRESENT: normal bowel sounds, soft. ABSENT: distended, guarding, mass, organolmegaly, rebound, tenderness Neurological exam: PRESENT: awake, oriented to time, oriented to situation Results Laboratory Results: 01/19/18 04:02 01/19/18 04:02 01/19/18 01/19/18 04:02 04:02 WBC 15.1 H RBC 4.90 Hgb 14.1 Hct 42.0 MCV 86 MCH 28.7 MCHC 33.6 RDW 15.1 H Plt Count 58 L Seg Neutrophils % Not Reportable Lymphocytes % Not Reportable Monocytes % Not Reportable Eosinophils % Not Reportable Basophils % Not Reportable Absolute Neutrophils Not Reportable Absolute Lymphocytes Not Reportable Absolute Monocytes Not Reportable Absolute Eosinophils Not Reportable Absolute Basophils Not Reportable Sodium 131.7 L Potassium 4.0 Chloride 98 Carbon Dioxide 21 L Anion Gap 13 BUN 56 H Creatinine 2.21 H Est GFR ( Amer) 26 L Est GFR (Non-Af Amer) 21 L Glucose 92 Calcium 8.2 L 01/16/18 01/16/18 01/17/18 20:45 20:45 03:05 Creatine Kinase 364 H CK-MB (CK-2) 2.41 1.36 Troponin I 0.021 0.022 01/17/18 01/17/18 01/17/18 03:05 09:05 09:05 Creatine Kinase 342 H 264 H CK-MB (CK-2) 0.96 Troponin I 0.024 01/18/18 01/18/18 01/18/18 16:12 16:12 22:17 Creatine Kinase 58 CK-MB (CK-2) 1.71 Troponin I 0.370 0.298 Impressions: Chest X-Ray 01/19/18 00:00 IMPRESSION: NO ACUTE RADIOGRAPHIC FINDING IN THE CHEST. Assessment & Plan - Diagnosis (1) Gram-negative bacteremia Is this a current diagnosis for this admission?: Yes Plan: Due to E. coli which is pansensitive to many antibiotics. Repeat blood cultures negative. (2) UTI (urinary tract infection) Qualifiers: Indwelling urinary catheter type: unspecified Is this a current diagnosis for this admission?: Yes Plan: Continue ceftriaxone. (3) KAMI (acute kidney injury) Is this a current diagnosis for this admission?: Yes Plan: Mildly worsened (4) Leukocytosis Qualifiers: Leukocytosis type: unspecified Qualified Code(s): D72.829 - Elevated white blood cell count, unspecified Is this a current diagnosis for this admission?: Yes Plan: Markedly trending down (5) Troponin level elevated Is this a current diagnosis for this admission?: Yes Plan: Is a borderline elevation most probably due to demand ischemia. I consulted Dr. Aburto to evaluate the patient. (6) Hypothyroidism Is this a current diagnosis for this admission?: Yes Plan: Continue Synthroid (7) Depression Qualifiers: Major depression episode severity: unspecified Is this a current diagnosis for this admission?: Yes Plan: Continue her home medications.
--- NOTE | 2018-01-19 12:11 | PDOC CONSULTATION ---
Consultation Consult Date: 01/19/18 Attending physician:: LOLITA KNIGHT Consult reason:: Positive troponin I History of Present Illness Admission Date/PCP: 01/16/18 17:07 Patient complains of: Dyspnea and marked fatigue History of Present Illness: JENNY TERRY is a 82 year old female with history of HTN and depression who presents with worsening urinary symptoms, weakness, and decreased PO intake. Patient states that a few weeks ago she developed urinary frequency and dysuria. Her son gave her cranberry juice over this time period. Feels that her symptoms were improved. However over the last 48 hours, states that she got progressively weaker. Had poor PO intake, chils, and inability to ambulate. States that dysuria has gotten worse. Denies blood in her urine. Also no fevers , CP, SOB, abdominal pain, NV. patient does not have history of frequent/ recurrent UTIs. Of note patients 2 weeks ago. States that her mood is OK and she is coping as well as she can. Daughter and son in law at bedside. Admitted to [facility] under hospitalist care. This history obtained by the hospitalist was reviewed and confirmed. Subsequent to hospitalization, patient was diagnosed to have urosepsis. She was noted to have positive troponin I. Patient also noted to have low platelet count. Patient's daughter and son at bedside. They claim history of CHF but no history of prior myocardial infarction or blockages. There is questionable history of CVA and some memory problems. Past Medical History Cardiac Medical History: Reports: Congestive Heart Failure - Question of CHF, Hyperlipidema, Hypertension Endocrine Medical History: Reports: Hypothyroidism GI Medical History: Reports: Gastroesophageal Reflux Disease Musculoskeltal Medical History: Reports: Gout Psychiatric Medical History: Reports: Depression Past Surgical History Past Surgical History: Reports: Orthopedic Surgery - Bilateral total knee replacement, Tubal Ligation, Other - Hysterectomy Social History Information Source: Patient Lives with: Alone - Spouse recently as of 01/16/2018 Smoking Status: Never Smoker Frequency of Alcohol Use: None Hx Recreational Drug Use: No Drugs: None Hx Prescription Drug Abuse: No - Advance Directive Resuscitation Status: Do Not Resuscitate Surrogate healthcare decision maker:: Patient's daughter is the surrogate decision-maker Family History Family History: Hypertension Parental Family History Reviewed: Yes Children Family History Reviewed: Yes Sibling(s) Family History Reviewed.: Yes Medication/Allergy Home Medications: Acebutolol HCl [Sectral 200 Mg Capsule] 400 mg PO BID 01/16/18 Acetaminophen [Tylenol Extra Strength] 1,000 mg PO BIDP PRN 01/16/18 Amitriptyline HCl 25 mg PO QHS 01/16/18 Calcium Carbonate/Vitamin D3 [Calcium 600 + Vit D 400 Tablet] 1 tab PO DAILY Escitalopram Oxalate [Lexapro] 10 mg PO DAILY 01/16/18 Levothyroxine Sodium 125 mcg PO Q6AM 01/16/18 Lisinopril/Hydrochlorothiazide [Lisinopril-Hctz 10-12.5 mg Tab] 1 each PO DAILY 01/16/18 Polyethylene Glycol 3350 [Miralax Powder 17 gm/Packet] 1 packet PO DAILY Pravastatin Sodium 40 mg PO DAILY 01/16/18 Bupropion HCl [Wellbutrin Xl 300mg 24hr Tablet] 300 mg PO DAILY 01/17/18 Melatonin [Melatonin 3 mg Tablet] 3 mg PO QHS 01/17/18 Allergies/Adverse Reactions: No Known Allergies Allergy (Verified 01/16/18 14:34) Review of Systems Review of Systems: Please see history of present illness and past medical history as wall. Constitutional: Mild general fatigue and tiredness reported. Head : No recent chronic headaches, recent head injury. Eyes: No recent eye pain, diplopia, redness, discharge, acute visual changes. Ears: No recent chronic ear pain, acute hearing loss, ear discharge. Oral cavity: No recent ulcerations, bleeding, oral cavity discomfort. Neck: No recent acute neck pain reported. Hematologic: No recent easy bruising or bleeding. Lymphatic: No recent lymph node enlargement reported. Cardiovascular system review: See history of present illness. Respiratory system review: No hemoptysis or blood clots in the lungs reported. Shortness of breath on exertion Gastrointestinal system review: Negative for any recent acute hematemesis, melena. Genitourinary system review: Currently admitted with UTI. No history of chronic hematuria, renal colic's etc. Skin system review: Negative for any recent abnormal bruising, no rash, no pruritus reported. Neurologic: No prior history of strokes, mini strokes, seizure disorder. Psychologic: No history of major psychosis or major depression reported. History of minor depression. Musculoskeletal: Minor aches and pains reported. No acute joint swelling reported. Endocrine: No recent polyuria, polydipsia, recent heat or cold intolerance. Physical Exam Vital Signs: Temp Pulse Resp BP Pulse Ox 98.7 F 73 18 134/52 H 96 01/19/18 07:33 01/19/18 10:40 01/19/18 10:40 01/19/18 07:33 01/19/18 10:40 Intake & Output 01/18/18 01/19/18 01/20/18 06:59 06:59 06:59 Intake Total 2351 692 Output Total 1400 Balance 2351 -708 Weight 88.9 kg 88.7 kg 88.7 kg Exam: GENERAL: well-nourished and in no acute distress. Alert and oriented x3 HEAD: Atraumatic, normocephalic. EYES: Pupils equal round and reactive to light, extraocular movements intact, sclera anicteric, conjunctiva are normal. ENT: TMs normal, nares patent, oropharynx clear without exudates. Moist mucous membranes. No oral ulcerations or bleeding gums noted NECK: supple without lymphadenopathy. Trachea is central. No cervical or axillary lymphadenopathy noted. Carotids are 2+, JVD WNL LUNGS: Respiration seems nonlabored, no significant accessory muscle action noted. Bibasilar fine crackles are noted. No wheezes rales or rhonchi noted. No significant dullness noted on percussion. CHEST: Palpation of the chest wall shows no significant chest wall tenderness. HEART: Kamiah WATCH COMMANDER, No PSH, 1/6 SHEREEN aortic area, 1/6 burrell systolic murmur mitral area, no rubs, no gallops. ABDOMEN: Soft, no significant tenderness appreciated, normoactive bowel sounds. No guarding, no rebound. No rigidity noted . No masses appreciated. EXTREMITIES: Pedal pulses are 1-2+, no calf tenderness noted. No clubbing or cyanosis. 1+ bilateral pedal edema noted NEUROLOGICAL: Focused neurological exam showed no significant neurologic deficit. Normal speech, no focal weakness appreciated. PSYCH: Normal mood, normal affect. Judgment and insight within normal limits. SKIN: No significant ecchymosis, skin is noted to be warm. MUSCULOSKELETAL EXAM: No significant acute joint swelling noted. Results Laboratory Results: 01/19/18 04:02 01/19/18 04:02 01/19/18 01/19/18 04:02 04:02 WBC 15.1 H RBC 4.90 Hgb 14.1 Hct 42.0 MCV 86 MCH 28.7 MCHC 33.6 RDW 15.1 H Plt Count 58 L Seg Neutrophils % Not Reportable Lymphocytes % Not Reportable Monocytes % Not Reportable Eosinophils % Not Reportable Basophils % Not Reportable Absolute Neutrophils Not Reportable Absolute Lymphocytes Not Reportable Absolute Monocytes Not Reportable Absolute Eosinophils Not Reportable Absolute Basophils Not Reportable Sodium 131.7 L Potassium 4.0 Chloride 98 Carbon Dioxide 21 L Anion Gap 13 BUN 56 H Creatinine 2.21 H Est GFR ( Amer) 26 L Est GFR (Non-Af Amer) 21 L Glucose 92 Calcium 8.2 L 01/16/18 01/16/18 01/17/18 20:45 20:45 03:05 Creatine Kinase 364 H CK-MB (CK-2) 2.41 1.36 Troponin I 0.021 0.022 01/17/18 01/17/18 01/17/18 03:05 09:05 09:05 Creatine Kinase 342 H 264 H CK-MB (CK-2) 0.96 Troponin I 0.024 01/18/18 01/18/18 01/18/18 16:12 16:12 22:17 Creatine Kinase 58 CK-MB (CK-2) 1.71 Troponin I 0.370 0.298 EKG Comments: EKG shows sinus rhythm with minor nods T-wave changes. Telemetry shows sinus rhythm. Impressions: Chest X-Ray 01/19/18 00:00 IMPRESSION: NO ACUTE RADIOGRAPHIC FINDING IN THE CHEST. Assessment & Plan - Diagnosis (1) Troponin level elevated Is this a current diagnosis for this admission?: Yes (2) HTN (hypertension) Qualifiers: Hypertension type: essential hypertension Qualified Code(s): I10 - Essential (primary) hypertension Is this a current diagnosis for this admission?: Yes (3) Gram-negative bacteremia Is this a current diagnosis for this admission?: Yes (4) Sepsis Qualifiers: Sepsis type: Escherichia coli Qualified Code(s): A41.51 - Sepsis due to Escherichia coli [E. coli] Is this a current diagnosis for this admission?: Yes (5) Thrombocytopenia Is this a current diagnosis for this admission?: Yes - Notes Notes: Troponin I elevation: Most likely related to sepsis, bacteremia rather than acute coronary syndrome. Will repeat EKG again in the morning to look for any evolving changes. At this point recommend statins, beta blockers. Antiplatelet therapy on hold because of low platelet count but would recommend restarting it if okayed by hematology/oncology. Hypertension: Currently under reasonable control. BP goal is 140/90 or less. Gram-negative bacteremia: Patient currently on antibiotic therapy. We will leave management plans to hospitalist. Sepsis: Currently improved. Thrombocytopenia: Possibly related to sepsis. I would expect this to and improved. Recommend following this closely. Once platelet counts improved above 100 recommend starting antiplatelet therapy with aspirin and Plavix. I did stop subcu heparin. DVT prophylaxis: Nurse given order to place patient on intermittent pneumatic compression devices. Patient will benefit from hematology oncology recommendation as to if we need to use any of the newer oral anticoagulants. An order to do that effect was given to the nurse. - Time Time Spent: 30 to 50 Minutes - CODE STATUS was discussed, patient remains full code. Surrogate decision-maker patient's daughter. Multiple medical problems were addressed. More than 50% of the time spent coordinating care, discussing management plans with involved caregivers. Management plans discussed with involved personnels. Medical decision making was of moderate to high complexity , patient's has multiple comorbidities. Medications reviewed and adjusted accordingly: Yes
[2018-01-19 12:20] LABS: CHOLESTEROL 95.68 mg/dL (0-200); TRIGLYCERIDES 212 mg/dL (<150)
[2018-01-19 12:31] LABS: DIRECT LDL 34 mg/dL (<100)
[2018-01-19 12:33] LABS: VLDL CHOLESTEROL 42.4 mg/dL (10-31)
[2018-01-19] MEDS: NORMAL SALINE 1000 ML 1,000 ML IV PRN (12:48)
--- NOTE | 2018-01-19 17:15 | CONSULTATION REPORT E ---
Consultation Report NAME: JENNY TERRY : 1935 AGE: 82Y DATE: 01/19/2018 304 B TO: NEETA HOOPER M.D. FROM: DONNA NAVARRETE M.D. Requesting Physician The patient is an 82-year-old woman who was admitted to the hospital on 01/16/2018. She had presented with weakness and urinary symptoms. She is being treated for urinary tract infection. On admission, she did have a leukocytosis and thrombocytopenia. She has been on antibiotics and the leukocytosis is improving. However, platelet count continues to decline. She is not aware of any prior episodes of thrombocytopenia. I spoke to her at the bedside. Her daughter and son were present. She has a primary care physician in [place]. She does go to [facility]. PAST MEDICAL HISTORY: 1. High blood pressure. 2. History of depression. 3. Congestive heart failure. 4. Hypothyroidism. 5. Gastroesophageal reflux disease. 6. Gout. PAST SURGICAL HISTORY: 1. Orthopedic bilateral knee replacement. 2. Tubal ligation. PHYSICAL EXAMINATION: She is an elderly woman. She was awake, eating lunch. Answers all questions appropriately. LABORATORY: 01/19/2018: White count 16.1, hemoglobin 14.1, platelet count 58. Sodium 131, potassium 4.0, calcium 8.2. She had a chest x-ray done 01/19/2018, no acute radiographic findings in the chest. IMPRESSION/PLAN: THE PATIENT IS AN 82-YEAR-OLD WOMAN WHO PRESENTS WITH LEUKOCYTOSIS, THROMBOCYTOPENIA. HEMOGLOBIN IS NORMAL. THE THROMBOCYTOPENIA MIGHT BE RELATED TO THE UNDERLYING MEDICAL PROBLEMS; HOWEVER, IT CONTINUES TO WORSEN. 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 I WILL OBTAIN ANTIPLATELET ANTIBODIES. I WILL OBTAIN HER PRIOR RECORDS TO GET THE PLATELET COUNTS TO ASCERTAIN THE ONSET. HOPEFULLY, THE UNDERLYING CONDITION IS BEING TREATED, HER PLATELET COUNTS WILL IMPROVE. SHE HAS NO BLEEDING OR BRUISING, AND AT THIS TIME PLATELET TRANSFUSION WILL NOT BE INDICATED. THERE WAS CONCERN ABOUT STARTING HER ON ANTIPLATELET AGENT, IF ABSOLUTELY NECESSARY. SHE SHOULD BE ABLE TO TOLERATE A BABY ASPIRIN, AND THIS CAN BE DISCONTINUED IF SHE STARTS TO BLEED OR BRUISE MORE EASILY. I WILL OBTAIN HER PRIOR RECORDS WITH RESULTS OF BLOOD TESTS SENT. IF SHE IS DISCHARGED PRIOR TO AVAILABILITY OF THIS RESULT, I WILL BE GLAD TO FOLLOW AN OUTPATIENT. Thank you for this consultation and allowing me to take part in her care. DICTATING PHYSICIAN: NEETA HOOPER M.D. [id number] [id number] ID: [id number] JOB#: [id number] ACCT: [id number] cc:NEETA HOOPER M.D. >
[2018-01-19] MEDS: ACETAMINOPHEN 325 MG TABLET PO PRN (17:19)
[2018-01-19] MEDS: ATORVASTATIN CALCIUM 40 MG TABLET PO SCH (21:28)
[2018-01-19] MEDS: MELATONIN 3 MG TABLET PO SCH (21:28)
[2018-01-19] MEDS: AMITRIPTYLINE HCL 25 MG TABLET PO SCH (21:29)
--- NOTE | 2018-01-19 21:57 | EKG REPORT ---
SEVERITY:- ABNORMAL ECG - SINUS RHYTHM BORDERLINE LEFT AXIS DEVIATION ABNRM R PROG, CONSIDER ASMI OR LEAD PLACEMENT : Confirmed by: Kierra Rodriguez 19-Jan-2018 21:56:39
[2018-01-20] MEDS: NORMAL SALINE 1000 ML 1,000 ML IV PRN (05:53)
[2018-01-20 07:42] LABS: HEMATOCRIT 41.1 % (36.0-47.0); HEMOGLOBIN 13.6 g/dL (12.0-15.5); MEAN CORPUSCULAR HEMOGLOBIN 28.3 pg (27.0-33.4); MEAN CORPUSCULAR HGB CONC 33.2 g/dL (32.0-36.0); MEAN CORPUSCULAR VOLUME 85 fl (80-97); RED BLOOD COUNT 4.82 10^6/uL (3.72-5.28); RED CELL DISTRIBUTION WIDTH 14.7 % (11.5-14.0); WHITE BLOOD COUNT 18.6 10^3/uL (4.0-10.5)
[2018-01-20 08:11] LABS: ANION GAP 10 (5-19); BLOOD UREA NITROGEN 56 mg/dL (7-20); CALCIUM 8.1 mg/dL (8.4-10.2); CARBON DIOXIDE 23 mmol/L (22-30); CHLORIDE 100 mmol/L (98-107); GLUCOSE 88 mg/dL (75-110); POTASSIUM 4.1 mmol/L (3.6-5.0); SODIUM 132.6 mmol/L (137-145)
[2018-01-20 08:17] LABS: PLATELET COUNT 65 10^3/uL (150-450)
[2018-01-20 08:23] LABS: ABSOLUTE LYMPHOCYTES# (MANUAL) 1.1 10^3/uL (0.5-4.7); ABSOLUTE MONOCYTES # (MANUAL) 2.2 10^3/uL (0.1-1.4); ABSOLUTE NEUTROPHILS# (MANUAL) 14.5 10^3/uL (1.7-8.2); BAND NEUTROPHILS % (MANUAL) 1 % (3-5); BASOPHILS % (MANUAL) 0 % (0-2); EOSINOPHILS % (MANUAL) 4 % (0-6); LYMPHOCYTES % (MANUAL) 6 % (13-45); MONOCYTES % (MANUAL) 12 % (3-13); NUCLEATED RED BLOOD CELLS 1 /100 WBC (0); PLATELET COMMENT DECREASED; POLYCHROMASIA SLIGHT; SEGMENTED NEUTROPHILS % (MAN) 77 % (42-78); TOTAL CELLS COUNTED 100; TOXIC GRANULATION SLIGHT; TOXIC VACUOLATION PRESENT
[2018-01-20] MEDS ORDERED: ASPIRIN 81 MG TABLET, ENT COATED PO SCH (10:00)
[2018-01-20] MEDS: CALCIUM CARBONATE 250 MG/VITAMIN D3 125 UNIT TABLET PO SCH (10:11)
[2018-01-20] MEDS: CEFTRIAXONE SODIUM 1,000 MG in DEXTROSE 5%-WATER 50 ML IV SCH (10:11)
[2018-01-20] MEDS: ESCITALOPRAM OXALATE 10 MG TABLET PO SCH (10:11)
[2018-01-20] MEDS: BUPROPION HCL 75 MG TABLET PO SCH ×2 (10:11→21:54)
[2018-01-20] MEDS: POLYETHYLENE GLYCOL 3350 POWDER 17 GM/1 PACKET PO SCH (10:13)
--- NOTE | 2018-01-20 12:14 | PDOC PROGRESS REPORT ---
Subjective Subjective:: Patient is awake alert and oriented. I seen her walking on the hallway while she is participating with physical therapy. It is a patient's clinical stable her blood works a little bit range at and WBC count jumped from 15.1-18.6. Her creatinine is slightly improved from 2.21-2.09. She has also thrombocytopenia and heparin is stopped and she is on sequential mechanical device. I appreciate Dr. Rodriguez's input. Reason For Visit: SEPSIS,UTI,ARF Physical Exam Vital Signs: Temp Pulse Resp BP Pulse Ox 97.9 F 75 18 113/90 H 98 01/20/18 08:23 01/20/18 10:29 01/20/18 10:29 01/20/18 08:23 01/20/18 10:29 Intake & Output 01/19/18 01/20/18 01/21/18 06:59 06:59 06:59 Intake Total 692 2500 Output Total 1400 1500 Balance -708 1000 Weight 88.7 kg 93.6 kg General appearance: PRESENT: no acute distress Head exam: PRESENT: atraumatic Mouth exam: PRESENT: moist Neck exam: ABSENT: carotid bruit, JVD, lymphadenopathy, thyromegaly Respiratory exam: PRESENT: crackles Cardiovascular exam: PRESENT: RRR. ABSENT: diastolic murmur, rubs, systolic murmur GI/Abdominal exam: PRESENT: normal bowel sounds, soft. ABSENT: distended, guarding, mass, organolmegaly, rebound, tenderness Results Laboratory Results: 01/20/18 04:20 01/20/18 04:20 01/19/18 01/20/18 01/20/18 04:02 04:20 04:20 WBC 18.6 H RBC 4.82 Hgb 13.6 Hct 41.1 MCV 85 MCH 28.3 MCHC 33.2 RDW 14.7 H Plt Count 65 L Seg Neutrophils % Not Reportable Lymphocytes % Not Reportable Monocytes % Not Reportable Eosinophils % Not Reportable Basophils % Not Reportable Absolute Neutrophils Not Reportable Absolute Lymphocytes Not Reportable Absolute Monocytes Not Reportable Absolute Eosinophils Not Reportable Absolute Basophils Not Reportable Sodium 132.6 L Potassium 4.1 Chloride 100 Carbon Dioxide 23 Anion Gap 10 BUN 56 H Creatinine 2.09 H Est GFR ( Amer) 28 L Est GFR (Non-Af Amer) 23 L Glucose 88 Calcium 8.1 L Triglycerides 212 H Cholesterol 95.68 LDL Cholesterol Direct 34 VLDL Cholesterol 42.4 H HDL Cholesterol 13 L 01/18/18 18:40 Catheterized Urine Urine Culture - Final NO GROWTH 2 DAYS 01/16/18 01/16/18 01/17/18 20:45 20:45 03:05 Creatine Kinase 364 H CK-MB (CK-2) 2.41 1.36 Troponin I 0.021 0.022 01/17/18 01/17/18 01/17/18 03:05 09:05 09:05 Creatine Kinase 342 H 264 H CK-MB (CK-2) 0.96 Troponin I 0.024 01/18/18 01/18/18 01/18/18 16:12 16:12 22:17 Creatine Kinase 58 CK-MB (CK-2) 1.71 Troponin I 0.370 0.298 Impressions: Chest X-Ray 01/19/18 00:00 IMPRESSION: NO ACUTE RADIOGRAPHIC FINDING IN THE CHEST. Assessment & Plan - Diagnosis (1) Gram-negative bacteremia Is this a current diagnosis for this admission?: Yes Plan: I will continue the IV ceftriaxone. (2) UTI (urinary tract infection) Qualifiers: Indwelling urinary catheter type: unspecified Is this a current diagnosis for this admission?: Yes Plan: Continue ceftriaxone. (3) KAMI (acute kidney injury) Is this a current diagnosis for this admission?: Yes Plan: Slight improvement in her creatinine (4) Leukocytosis Qualifiers: Leukocytosis type: unspecified Qualified Code(s): D72.829 - Elevated white blood cell count, unspecified Is this a current diagnosis for this admission?: Yes Plan: Slight bump in her leukocytosis from 15.1-18.6 (5) Troponin level elevated Is this a current diagnosis for this admission?: Yes Plan: She is being followed by Dr. Rodriguez. (6) Hypothyroidism Is this a current diagnosis for this admission?: Yes Plan: Continue Synthroid (7) Depression Qualifiers: Major depression episode severity: unspecified Is this a current diagnosis for this admission?: Yes Plan: Continue her home medications.
--- NOTE | 2018-01-20 13:08 | PDOC PROGRESS REPORT ---
Subjective Progress Note for:: 01/20/18 Subjective:: Patient seems to be doing better with gradual improvement. Pt is denying any chest arm or neck discomfort. Patient denying any PND, orthopnea. Patient denied any sustained palpitations, dizziness, syncope, near syncope. Patient denying any fever chills. Patient denying any other significant discomfort. Patient is maintaining sinus rhythm. Patient is more alert and oriented today. Review of systems: Rest review of systems negative. Medications: Medications have been reviewed. Reason For Visit: SEPSIS,UTI,ARF Physical Exam Vital Signs: Temp Pulse Resp BP Pulse Ox 97.9 F 75 18 113/90 H 98 01/20/18 08:23 01/20/18 10:29 01/20/18 10:29 01/20/18 08:23 01/20/18 10:29 Intake & Output 01/19/18 01/20/18 01/21/18 06:59 06:59 06:59 Intake Total 692 2500 Output Total 1400 1500 Balance -708 1000 Weight 88.7 kg 93.6 kg Exam: GENERAL: well-nourished and in no acute distress. Alert and oriented x3 HEAD: Atraumatic, normocephalic. EYES: Pupils equal round and reactive to light, extraocular movements intact, sclera anicteric, conjunctiva are normal. ENT: TMs normal, nares patent, oropharynx clear without exudates. Moist mucous membranes. No oral ulcerations or bleeding gums noted NECK: supple without lymphadenopathy. Trachea is central. No cervical or axillary lymphadenopathy noted. Carotids are 2+, JVD WNL LUNGS: Respiration seems nonlabored, no significant accessory muscle action noted. Bibasilar fine crackles are noted. No wheezes rales or rhonchi noted. No significant dullness noted on percussion. CHEST: Palpation of the chest wall shows no significant chest wall tenderness. HEART: [place] [employer], No PSH, 1/6 SHEREEN aortic area, 1/6 burrell systolic murmur mitral area, no rubs, no gallops. ABDOMEN: Soft, no significant tenderness appreciated, normoactive bowel sounds. No guarding, no rebound. No rigidity noted . No masses appreciated. EXTREMITIES: Pedal pulses are 1-2+, no calf tenderness noted. No clubbing or cyanosis. 1+ pedal edema noted NEUROLOGICAL: Focused neurological exam showed no significant neurologic deficit. Normal speech, no focal weakness appreciated. PSYCH: Normal mood, normal affect. Judgment and insight within normal limits. SKIN: No significant ecchymosis, skin is noted to be warm. MUSCULOSKELETAL EXAM: No significant acute joint swelling noted. Results Laboratory Results: 01/20/18 04:20 01/20/18 04:20 01/20/18 01/20/18 04:20 04:20 WBC 18.6 H RBC 4.82 Hgb 13.6 Hct 41.1 MCV 85 MCH 28.3 MCHC 33.2 RDW 14.7 H Plt Count 65 L Seg Neutrophils % Not Reportable Lymphocytes % Not Reportable Monocytes % Not Reportable Eosinophils % Not Reportable Basophils % Not Reportable Absolute Neutrophils Not Reportable Absolute Lymphocytes Not Reportable Absolute Monocytes Not Reportable Absolute Eosinophils Not Reportable Absolute Basophils Not Reportable Sodium 132.6 L Potassium 4.1 Chloride 100 Carbon Dioxide 23 Anion Gap 10 BUN 56 H Creatinine 2.09 H Est GFR ( Amer) 28 L Est GFR (Non-Af Amer) 23 L Glucose 88 Calcium 8.1 L 01/18/18 18:40 Catheterized Urine Urine Culture - Final NO GROWTH 2 DAYS 01/16/18 01/16/18 01/17/18 20:45 20:45 03:05 Creatine Kinase 364 H CK-MB (CK-2) 2.41 1.36 Troponin I 0.021 0.022 01/17/18 01/17/18 01/17/18 03:05 09:05 09:05 Creatine Kinase 342 H 264 H CK-MB (CK-2) 0.96 Troponin I 0.024 01/18/18 01/18/18 01/18/18 16:12 16:12 22:17 Creatine Kinase 58 CK-MB (CK-2) 1.71 Troponin I 0.370 0.298 EKG Comments: Telemetry strip shows sinus rhythm without any sustained tachycardia or bradycardia. Impressions: Chest X-Ray 01/19/18 00:00 IMPRESSION: NO ACUTE RADIOGRAPHIC FINDING IN THE CHEST. Assessment & Plan - Diagnosis (1) Troponin level elevated Is this a current diagnosis for this admission?: Yes (2) HTN (hypertension) Qualifiers: Hypertension type: essential hypertension Qualified Code(s): I10 - Essential (primary) hypertension Is this a current diagnosis for this admission?: Yes (3) Gram-negative bacteremia Is this a current diagnosis for this admission?: Yes (4) Sepsis Qualifiers: Sepsis type: Escherichia coli Qualified Code(s): A41.51 - Sepsis due to Escherichia coli [E. coli] Is this a current diagnosis for this admission?: Yes (5) Thrombocytopenia Is this a current diagnosis for this admission?: Yes - Notes Notes: Troponin I elevation: Most likely related to sepsis, bacteremia rather than acute coronary syndrome. Patient has shown gradual significant improvement. Will continue to hold aspirin until platelet count over 100. Hypertension: Currently under reasonable control. BP goal is 140/90 or less. Gram-negative bacteremia: Patient currently on antibiotic therapy. We will leave management plans to hospitalist. Sepsis: Currently improved. Thrombocytopenia: Possibly related to sepsis. I would expect this to and improved. Recommend following this closely. Once platelet counts improved above 100 recommend starting antiplatelet therapy with aspirin and Plavix. I did stop subcu heparin. DVT prophylaxis: Nurse given order to place patient on intermittent pneumatic compression devices. Patient will benefit from hematology oncology recommendation as to if we need to use any of the newer oral anticoagulants. Patient has shown gradual but sustained improvement. Continue current management plans. 2D echo results were reviewed with patient's daughter who is healthcare surrogate decision-maker. - Time Time with patient: Greater than 35 minutes - CODE STATUS : was discussed, patient remains DO NOT RESUSCITATE. Surrogate decision-maker unchanged. Multiple medical problems were addressed. More than 50% of the time spent coordinating care, discussing management plans with involved caregivers. Management plans discussed with involved personnels. Medical decision making was of moderate to high complexity, patient's has multiple comorbidities. Medications reviewed and adjusted accordingly: Yes
[2018-01-20] MEDS: IPRATROPIUM/ALBUTEROL 0.5-2.5 MG/3 ML AMPUL NEB PRN (14:43)
[2018-01-20] MEDS: MELATONIN 3 MG TABLET PO SCH (21:54)
[2018-01-20] MEDS: AMITRIPTYLINE HCL 25 MG TABLET PO SCH (21:54)
[2018-01-20] MEDS: ATORVASTATIN CALCIUM 40 MG TABLET PO SCH (21:55)
[2018-01-21] MEDS: NORMAL SALINE 1000 ML 1,000 ML IV PRN (05:10)
[2018-01-21 08:36] LABS: HEMATOCRIT 38.3 % (36.0-47.0); HEMOGLOBIN 12.8 g/dL (12.0-15.5); MEAN CORPUSCULAR HEMOGLOBIN 28.7 pg (27.0-33.4); MEAN CORPUSCULAR HGB CONC 33.5 g/dL (32.0-36.0); MEAN CORPUSCULAR VOLUME 86 fl (80-97); RED BLOOD COUNT 4.47 10^6/uL (3.72-5.28); RED CELL DISTRIBUTION WIDTH 14.8 % (11.5-14.0); WHITE BLOOD COUNT 19.8 10^3/uL (4.0-10.5)
[2018-01-21 08:50] LABS: ANION GAP 11 (5-19); BLOOD UREA NITROGEN 47 mg/dL (7-20); CALCIUM 7.8 mg/dL (8.4-10.2); CARBON DIOXIDE 19 mmol/L (22-30); CHLORIDE 104 mmol/L (98-107); GLUCOSE 82 mg/dL (75-110); POTASSIUM 4.2 mmol/L (3.6-5.0)
[2018-01-21 09:02] LABS: PLATELET COUNT 88 10^3/uL (150-450)
[2018-01-21 09:03] LABS: ABSOLUTE LYMPHOCYTES# (MANUAL) 1.4 10^3/uL (0.5-4.7); ABSOLUTE MONOCYTES # (MANUAL) 0.8 10^3/uL (0.1-1.4); ABSOLUTE NEUTROPHILS# (MANUAL) 17.6 10^3/uL (1.7-8.2); BASOPHILS % (MANUAL) 0 % (0-2); EOSINOPHILS % (MANUAL) 0 % (0-6); LYMPHOCYTES % (MANUAL) 7 % (13-45); MONOCYTES % (MANUAL) 4 % (3-13); PLATELET COMMENT DECREASED; RBC MORPHOLOGY COMMENT NORMO-CYTIC/CHROMIC; SEGMENTED NEUTROPHILS % (MAN) 89 % (42-78); TOTAL CELLS COUNTED 100
[2018-01-21] MEDS: ESCITALOPRAM OXALATE 10 MG TABLET PO SCH (10:01)
[2018-01-21] MEDS: CALCIUM CARBONATE 250 MG/VITAMIN D3 125 UNIT TABLET PO SCH (10:01)
[2018-01-21] MEDS: POLYETHYLENE GLYCOL 3350 POWDER 17 GM/1 PACKET PO SCH (10:01)
[2018-01-21] MEDS: BUPROPION HCL 75 MG TABLET PO SCH ×2 (10:01→22:04)
[2018-01-21] MEDS: CEFTRIAXONE SODIUM 1,000 MG in DEXTROSE 5%-WATER 50 ML IV SCH (10:02)
[2018-01-21] MEDS: IPRATROPIUM/ALBUTEROL 0.5-2.5 MG/3 ML AMPUL NEB PRN (10:44)
[2018-01-21] MEDS ORDERED: VANCOMYCIN HCL 0 MG in DEXTROSE 5%-WATER 250 ML IV NR (11:00)
[2018-01-21] MEDS ORDERED: CEFEPIME 2 GM/D5W RTU 2 GM/50 ML RTUPB IV SCH (13:00)
--- NOTE | 2018-01-21 13:31 | PDOC PROGRESS REPORT ---
Subjective Progress Note for:: 01/21/18 Subjective:: Ms. Darling had a rough night reportedly. She is confused and trying to get out of bed. Her white cell count is trending up but her kidney function is improving her creatinine trending down from 2.21-1.55. This morning CT scan of the chest without contrast done the official report is pending but from my reading is that she has bilateral patchy consolidation right greater than left. This might be due to airspace disease like pneumonitis or pneumonia or pulmonary edema. Blood cultures requested and I discontinued her ceftriaxone and started on cefepime and vancomycin. Reason For Visit: SEPSIS,UTI,ARF Physical Exam Vital Signs: Temp Pulse Resp BP Pulse Ox 97.6 F 93 16 149/60 H 96 01/21/18 03:02 01/21/18 10:40 01/21/18 10:40 01/21/18 03:02 01/21/18 10:40 Intake & Output 01/20/18 01/21/18 01/22/18 06:59 06:59 06:59 Intake Total 2500 2713 Output Total 1500 Balance 1000 2713 Weight 93.6 kg 96.9 kg General appearance: PRESENT: mild distress Head exam: PRESENT: atraumatic Eye exam: PRESENT: conjunctiva pink Mouth exam: PRESENT: dry mucosa Neck exam: ABSENT: carotid bruit, JVD, lymphadenopathy, thyromegaly Respiratory exam: PRESENT: crackles, other - She has bilateral coarse crepitation Cardiovascular exam: PRESENT: RRR. ABSENT: diastolic murmur, rubs, systolic murmur GI/Abdominal exam: PRESENT: normal bowel sounds, soft. ABSENT: distended, guarding, mass, organolmegaly, rebound, tenderness Extremities exam: PRESENT: full ROM. ABSENT: calf tenderness, clubbing, pedal edema Neurological exam: PRESENT: alert Results Laboratory Results: 01/21/18 07:59 01/21/18 07:59 01/21/18 01/21/18 07:59 07:59 WBC 19.8 H RBC 4.47 Hgb 12.8 Hct 38.3 MCV 86 MCH 28.7 MCHC 33.5 RDW 14.8 H Plt Count 88 L Seg Neutrophils % Not Reportable Lymphocytes % Not Reportable Monocytes % Not Reportable Eosinophils % Not Reportable Basophils % Not Reportable Absolute Neutrophils Not Reportable Absolute Lymphocytes Not Reportable Absolute Monocytes Not Reportable Absolute Eosinophils Not Reportable Absolute Basophils Not Reportable Sodium 134.0 L Potassium 4.2 Chloride 104 Carbon Dioxide 19 L Anion Gap 11 BUN 47 H Creatinine 1.55 H Est GFR ( Amer) 39 L Est GFR (Non-Af Amer) 32 L Glucose 82 Calcium 7.8 L 01/16/18 01/16/18 01/17/18 20:45 20:45 03:05 Creatine Kinase 364 H CK-MB (CK-2) 2.41 1.36 Troponin I 0.021 0.022 01/17/18 01/17/18 01/17/18 03:05 09:05 09:05 Creatine Kinase 342 H 264 H CK-MB (CK-2) 0.96 Troponin I 0.024 01/18/18 01/18/18 01/18/18 16:12 16:12 22:17 Creatine Kinase 58 CK-MB (CK-2) 1.71 Troponin I 0.370 0.298 Impressions: Chest X-Ray 01/19/18 00:00 IMPRESSION: NO ACUTE RADIOGRAPHIC FINDING IN THE CHEST. Assessment & Plan - Diagnosis (1) Gram-negative bacteremia Is this a current diagnosis for this admission?: Yes Plan: Ceftriaxone discontinued and patient switched to cefepime (2) UTI (urinary tract infection) Qualifiers: Indwelling urinary catheter type: unspecified Is this a current diagnosis for this admission?: Yes Plan: As a #1 (3) KAMI (acute kidney injury) Is this a current diagnosis for this admission?: Yes Plan: Her creatinine is trending down from 2.21-to-1.55. (4) Leukocytosis Qualifiers: Leukocytosis type: unspecified Qualified Code(s): D72.829 - Elevated white blood cell count, unspecified Is this a current diagnosis for this admission?: Yes Plan: At admission her white cell count was 23,000 and until yesterday it has been trending down. White cell count 19.8 (5) Troponin level elevated Is this a current diagnosis for this admission?: Yes Plan: She is being followed by Dr. Rodriguez. (6) Hypothyroidism Is this a current diagnosis for this admission?: Yes Plan: Continue Synthroid (7) Depression Qualifiers: Major depression episode severity: unspecified Is this a current diagnosis for this admission?: Yes Plan: Continue her home medications. (8) Suspected healthcare associated pneumo Is this a current diagnosis for this admission?: Yes Plan: Blood culture requested. CT chest without contrast done on patient report pending but from my reading it looks like she has bilateral patchy consolidation right greater than left. Patient has been started on cefepime and vancomycin empirically.
--- NOTE | 2018-01-21 13:37 | RADIOLOGY REPORT (SQ) ---
EXAM DESCRIPTION: CT CHEST WITHOUT COMPLETED DATE/TIME: 01/21/2018 12:45 pm REASON FOR STUDY: PNA COMPARISON: Chest x-ray 01/19/2018. TECHNIQUE: CT scan performed of the chest without intravenous contrast. Images reviewed with lung, soft tissue and bone windows. Reconstructed coronal and sagittal MPR images reviewed. All images st ored on PACS. All CT scanners at this facility use dose modulation, iterative reconstruction, and/or weight based d osing when appropriate to reduce radiation dose to as low as reasonably achievable (ALARA). [facility]: Dose Right [facility]: CareDose [facility]: Dose Right [facility]: Teradose 4D [facility]: Smart [employer] RADIATION DOSE: CT Rad equipment meets quality standard of care and radiation dose reduction techniq ues were employed. CTDIvol: 14.8 mGy. DLP: 493 mGy-cm. mGy. LIMITATIONS: No technical limitations. FINDINGS: LUNGS AND PLEURA: There are trace bilateral pleural effusions. There are multiple bilater al patchy ground-glass opacities. There is diffuse septal thickening suggestive of interstitial carmen a. No pneumothorax. HILAR AND MEDIASTINAL STRUCTURES: There is mild mediastinal adenopathy measuring up to 11 mm in short axis. Limited evaluation for hilar adenopathy in the absence of intravenous contrast. HEART AND VASCULAR STRUCTURES: No thoracic aortic aneurysm. No pericardial effusion. The heart is m ildly enlarged. The main pulmonary artery is dilated. UPPER ABDOMEN: No significant findings. Limited exam. THYROID AND OTHER SOFT TISSUES: No masses. No adenopathy. BONES: Multilevel degenerative changes are noted at the spine. HARDWARE: None in the chest. IMPRESSION: 1. Bilateral patchy ground-glass opacities, may represent multifocal pneumonia pulmonary edema or hemorrhage. Followup CT after treatment recommended to ensure complete resolution and excl ude underlying neoplasm. 2. Cardiomegaly. Interstitial edema. Dilated main pulmonary artery, may be seen with pulmonary koko rial hypertension. 3. Mild mediastinal adenopathy. Trace bilateral pleural effusions. TECHNICAL DOCUMENTATION: JOB ID: [id number] MS- Quality ID # [id number]: Final reports with documentation of one or more dose reduction techniques (e.g., Au tomated exposure control, adjustment of the mA and/or kV according to patient size, use of iterative reconstruction technique) 2010 [employer]- All Rights Reserved Reading location - IP/workstation name: [email or web address]
[2018-01-21] MEDS ORDERED: FUROSEMIDE INJ/PF 40 MG/4 ML SDV IV ONE (14:00)
[2018-01-21] MEDS: VANCOMYCIN HCL 750 MG in DEXTROSE 5%-WATER 250 ML IV SCH (14:52)
--- NOTE | 2018-01-21 20:21 | PDOC PROGRESS REPORT ---
Subjective Progress Note for:: 01/21/18 Subjective:: Patient's daughter at bedside. They claim instances of disorientation patient is more weak.. Pt is denying any chest arm or neck discomfort. Patient denying any PND, orthopnea. Patient denied any sustained palpitations, dizziness, syncope, near syncope. Patient denying any fever chills. Patient denying any other significant discomfort. Patient is maintaining sinus rhythm. Patient is more alert and oriented today. Review of systems: Rest review of systems negative. Medications: Medications have been reviewed. Reason For Visit: SEPSIS,UTI,ARF Physical Exam Vital Signs: Temp Pulse Resp BP Pulse Ox 97.5 F 76 20 136/56 H 99 01/21/18 15:55 01/21/18 15:55 01/21/18 15:55 01/21/18 15:55 01/21/18 15:55 Intake & Output 01/20/18 01/21/18 01/22/18 06:59 06:59 06:59 Intake Total 2500 2713 1646 Output Total 1500 300 Balance 1000 2713 1346 Weight 93.6 kg 96.9 kg Exam: GENERAL: well-nourished and in no acute distress. Alert and oriented x 2 HEAD: Atraumatic, normocephalic. EYES: Pupils equal round and reactive to light, extraocular movements intact, sclera anicteric, conjunctiva are normal. ENT: TMs normal, nares patent, oropharynx clear without exudates. Moist mucous membranes. No oral ulcerations or bleeding gums noted NECK: supple without lymphadenopathy. Trachea is central. No cervical or axillary lymphadenopathy noted. Carotids are 2+, JVD WNL LUNGS: Respiration seems nonlabored, no significant accessory muscle action noted. Breath sounds clear to auscultation bilaterally and equal noted. No wheezes rales or rhonchi noted. No significant dullness noted on percussion. CHEST: Palpation of the chest wall shows no significant chest wall tenderness. 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 ABDOMEN: Soft, no significant tenderness appreciated, normoactive bowel sounds. No guarding, no rebound. No rigidity noted . No masses appreciated. EXTREMITIES: Pedal pulses are 1-2+, no calf tenderness noted. No clubbing or cyanosis. 1+ pedal edema noted NEUROLOGICAL: Focused neurological exam showed no significant neurologic deficit. Normal speech, no focal weakness appreciated. PSYCH: Normal mood, normal affect. Judgment and insight not checked. SKIN: No significant ecchymosis, skin is noted to be warm. MUSCULOSKELETAL EXAM: No significant acute joint swelling noted. Results Laboratory Results: 01/21/18 07:59 01/21/18 07:59 01/21/18 01/21/18 07:59 07:59 WBC 19.8 H RBC 4.47 Hgb 12.8 Hct 38.3 MCV 86 MCH 28.7 MCHC 33.5 RDW 14.8 H Plt Count 88 L Seg Neutrophils % Not Reportable Lymphocytes % Not Reportable Monocytes % Not Reportable Eosinophils % Not Reportable Basophils % Not Reportable Absolute Neutrophils Not Reportable Absolute Lymphocytes Not Reportable Absolute Monocytes Not Reportable Absolute Eosinophils Not Reportable Absolute Basophils Not Reportable Sodium 134.0 L Potassium 4.2 Chloride 104 Carbon Dioxide 19 L Anion Gap 11 BUN 47 H Creatinine 1.55 H Est GFR ( Amer) 39 L Est GFR (Non-Af Amer) 32 L Glucose 82 Calcium 7.8 L 01/16/18 01/16/18 01/17/18 20:45 20:45 03:05 Creatine Kinase 364 H CK-MB (CK-2) 2.41 1.36 Troponin I 0.021 0.022 01/17/18 01/17/18 01/17/18 03:05 09:05 09:05 Creatine Kinase 342 H 264 H CK-MB (CK-2) 0.96 Troponin I 0.024 01/18/18 01/18/18 01/18/18 16:12 16:12 22:17 Creatine Kinase 58 CK-MB (CK-2) 1.71 Troponin I 0.370 0.298 EKG Comments: Shows sinus rhythm without any sustained tacky or bradycardia Impressions: Chest X-Ray 01/19/18 00:00 IMPRESSION: NO ACUTE RADIOGRAPHIC FINDING IN THE CHEST. Chest CT 01/21/18 00:00 IMPRESSION: 1. Bilateral patchy ground-glass opacities, may represent multifocal pneumonia pulmonary edema or hemorrhage. Followup CT after treatment recommended to ensure complete resolution and exclude underlying neoplasm. 2. Cardiomegaly. Interstitial edema. Dilated main pulmonary artery, may be seen with pulmonary arterial hypertension. 3. Mild mediastinal adenopathy. Trace bilateral pleural effusions. Assessment & Plan - Diagnosis (1) Troponin level elevated Is this a current diagnosis for this admission?: Yes (2) HTN (hypertension) Qualifiers: Hypertension type: essential hypertension Qualified Code(s): I10 - Essential (primary) hypertension Is this a current diagnosis for this admission?: Yes (3) Gram-negative bacteremia Is this a current diagnosis for this admission?: Yes (4) Sepsis Qualifiers: Sepsis type: Escherichia coli Qualified Code(s): A41.51 - Sepsis due to Escherichia coli [E. coli] Is this a current diagnosis for this admission?: Yes (5) Thrombocytopenia Is this a current diagnosis for this admission?: Yes - Notes Notes: Patient has shown mild deterioration. But generally stable. Continue current management plans. Discussed with hospitalist. Troponin I elevation: Most likely related to sepsis, bacteremia rather than acute coronary syndrome. Patient has shown gradual significant improvement. Will continue to hold aspirin until platelet count over 100. Hypertension: Currently under reasonable control. BP goal is 140/90 or less. Gram-negative bacteremia: Patient currently on antibiotic therapy. We will leave management plans to hospitalist. Sepsis: Currently improved. Thrombocytopenia: Possibly related to sepsis. I would expect this to and improved. Recommend following this closely. Once platelet counts improved above 100 recommend starting antiplatelet therapy with aspirin and Plavix. I did stop subcu heparin. DVT prophylaxis: Nurse given order to place patient on intermittent pneumatic compression devices. Patient will benefit from hematology oncology recommendation as to if we need to use any of the newer oral anticoagulants. 2D echo results were reviewed with patient's daughter who is healthcare surrogate decision-maker. - Time Time with patient: 15-25 minutes - CODE STATUS : was discussed, patient remains DO NOT RESUSCITATE. Surrogate decision-maker unchanged. Multiple medical problems were addressed. More than 50% of the time spent coordinating care, discussing management plans with involved caregivers. Management plans discussed with involved personnels. Medical decision making was of moderate to high complexity, patient's has multiple comorbidities.
[2018-01-21] MEDS: AMITRIPTYLINE HCL 25 MG TABLET PO SCH (21:25)
[2018-01-21] MEDS: ATORVASTATIN CALCIUM 40 MG TABLET PO SCH (21:25)
[2018-01-21] MEDS: ACETAMINOPHEN 325 MG TABLET PO PRN (21:26)
[2018-01-21] MEDS: MELATONIN 3 MG TABLET PO SCH (22:05)
[2018-01-22] MEDS: NORMAL SALINE 1000 ML 1,000 ML IV PRN (04:55)
[2018-01-22 05:19] LABS: HEMATOCRIT 38.7 % (36.0-47.0); MEAN CORPUSCULAR HEMOGLOBIN 28.8 pg (27.0-33.4); MEAN CORPUSCULAR HGB CONC 33.7 g/dL (32.0-36.0); MEAN CORPUSCULAR VOLUME 85 fl (80-97); PLATELET COUNT 100 10^3/uL (150-450); RED BLOOD COUNT 4.53 10^6/uL (3.72-5.28); RED CELL DISTRIBUTION WIDTH 14.9 % (11.5-14.0); WHITE BLOOD COUNT 18.1 10^3/uL (4.0-10.5)
[2018-01-22 06:23] LABS: ABSOLUTE LYMPHOCYTES# (MANUAL) 1.4 10^3/uL (0.5-4.7); ABSOLUTE MONOCYTES # (MANUAL) 0.2 10^3/uL (0.1-1.4); ABSOLUTE NEUTROPHILS# (MANUAL) 16.1 10^3/uL (1.7-8.2); BASOPHILS % (MANUAL) 0 % (0-2); EOSINOPHILS % (MANUAL) 2 % (0-6); LYMPHOCYTES % (MANUAL) 8 % (13-45); MONOCYTES % (MANUAL) 1 % (3-13); SEGMENTED NEUTROPHILS % (MAN) 89 % (42-78); TOTAL CELLS COUNTED 100
[2018-01-22 06:24] LABS: PLATELET COMMENT DECREASED; RBC MORPHOLOGY COMMENT NORMO-CYTIC/CHROMIC
[2018-01-22 06:48] LABS: ANION GAP 11 (5-19); BLOOD UREA NITROGEN 44 mg/dL (7-20); CALCIUM 8.2 mg/dL (8.4-10.2); CARBON DIOXIDE 22 mmol/L (22-30); CHLORIDE 101 mmol/L (98-107); GLUCOSE 89 mg/dL (75-110); SODIUM 134.2 mmol/L (137-145)
[2018-01-22] MEDS ORDERED: BENZONATATE 100 MG CAPSULE PO ONE (09:00)
[2018-01-22] MEDS: ESCITALOPRAM OXALATE 10 MG TABLET PO SCH (10:02)
[2018-01-22] MEDS: CALCIUM CARBONATE 250 MG/VITAMIN D3 125 UNIT TABLET PO SCH (10:02)
[2018-01-22] MEDS: POLYETHYLENE GLYCOL 3350 POWDER 17 GM/1 PACKET PO SCH (10:02)
[2018-01-22] MEDS: IPRATROPIUM/ALBUTEROL 0.5-2.5 MG/3 ML AMPUL NEB PRN (11:27)
[2018-01-22] MEDS: BUPROPION HCL 75 MG TABLET PO SCH ×2 (12:45→22:08)
[2018-01-22] MEDS: CEFEPIME 2 GM/D5W RTU 2 GM/50 ML RTUPB IV SCH (12:45)
--- NOTE | 2018-01-22 12:50 | PDOC PROGRESS REPORT ---
Subjective Progress Note for:: 01/22/18 Subjective:: I seen patient while she is sleeping quietly. Her vital signs are stable. Her WBC count is slightly trending down. And her creatinine continued to trend down. She is started on Tessalon Perles for cough. There is no report of nausea, vomiting, diarrhea. No orthopnea or PND. Reason For Visit: SEPSIS,UTI,ARF Physical Exam Vital Signs: Temp Pulse Resp BP Pulse Ox 97.7 F 67 16 120/56 L 95 01/22/18 11:16 01/22/18 11:27 01/22/18 11:27 01/22/18 11:16 01/22/18 11:27 Intake & Output 01/21/18 01/22/18 01/23/18 06:59 06:59 06:59 Intake Total 2713 2840 873 Output Total 1400 450 Balance 2713 1440 423 Weight 96.9 kg 93 kg Results Laboratory Results: 01/22/18 04:51 01/22/18 04:51 01/22/18 01/22/18 01/22/18 04:51 04:51 04:51 WBC 18.1 H RBC 4.53 Hgb 13.0 Hct 38.7 MCV 85 MCH 28.8 MCHC 33.7 RDW 14.9 H Plt Count 100 L Seg Neutrophils % Not Reportable Lymphocytes % Not Reportable Monocytes % Not Reportable Eosinophils % Not Reportable Basophils % Not Reportable Absolute Neutrophils Not Reportable Absolute Lymphocytes Not Reportable Absolute Monocytes Not Reportable Absolute Eosinophils Not Reportable Absolute Basophils Not Reportable Sodium 134.2 L Potassium 4.0 Chloride 101 Carbon Dioxide 22 Anion Gap 11 BUN 44 H Creatinine 1.45 H Est GFR ( Amer) 42 L Est GFR (Non-Af Amer) 35 L Glucose 89 Lactic Acid 1.2 Calcium 8.2 L 01/16/18 01/16/18 01/17/18 20:45 20:45 03:05 Creatine Kinase 364 H CK-MB (CK-2) 2.41 1.36 Troponin I 0.021 0.022 NT-Pro-B Natriuret Pep 01/17/18 01/17/18 01/17/18 03:05 09:05 09:05 Creatine Kinase 342 H 264 H CK-MB (CK-2) 0.96 Troponin I 0.024 NT-Pro-B Natriuret Pep 01/18/18 01/18/18 01/18/18 16:12 16:12 22:17 Creatine Kinase 58 CK-MB (CK-2) 1.71 Troponin I 0.370 0.298 NT-Pro-B Natriuret Pep 01/22/18 04:51 Creatine Kinase CK-MB (CK-2) Troponin I NT-Pro-B Natriuret Pep 3010 H Impressions: Chest X-Ray 01/19/18 00:00 IMPRESSION: NO ACUTE RADIOGRAPHIC FINDING IN THE CHEST. Chest CT 01/21/18 00:00 IMPRESSION: 1. Bilateral patchy ground-glass opacities, may represent multifocal pneumonia pulmonary edema or hemorrhage. Followup CT after treatment recommended to ensure complete resolution and exclude underlying neoplasm. 2. Cardiomegaly. Interstitial edema. Dilated main pulmonary artery, may be seen with pulmonary arterial hypertension. 3. Mild mediastinal adenopathy. Trace bilateral pleural effusions. Assessment & Plan - Diagnosis (1) Suspected healthcare associated pneumo Is this a current diagnosis for this admission?: Yes Plan: Patient has been started on vancomycin and cefepime. Based on her clinical progress and blood culture and sensitivity results will adjust her antibiotics. (2) Gram-negative bacteremia Is this a current diagnosis for this admission?: Yes Plan: Continue cefepime (3) UTI (urinary tract infection) Qualifiers: Indwelling urinary catheter type: unspecified Is this a current diagnosis for this admission?: Yes Plan: Continue cefepime (4) KAMI (acute kidney injury) Is this a current diagnosis for this admission?: Yes Plan: Her creatinine continued to trend down. (5) Leukocytosis Qualifiers: Leukocytosis type: unspecified Qualified Code(s): D72.829 - Elevated white blood cell count, unspecified Is this a current diagnosis for this admission?: Yes Plan: Slightly improving (6) Troponin level elevated Is this a current diagnosis for this admission?: Yes Plan: She is being followed by Dr. Rodriguez. (7) Hypothyroidism Is this a current diagnosis for this admission?: Yes Plan: Continue Synthroid (8) Depression Qualifiers: Major depression episode severity: unspecified Is this a current diagnosis for this admission?: Yes Plan: Continue her home medications. - Time Time Spent with patient: 25-34 minutes
--- NOTE | 2018-01-22 14:50 | PDOC PROGRESS REPORT ---
Subjective Progress Note for:: 01/22/18 Subjective:: Patient's daughter at bedside. Patient today more alert and more cheerful. Pt is denying any chest arm or neck discomfort. Patient denying any PND, orthopnea. Patient denied any sustained palpitations, dizziness, syncope, near syncope. Patient denying any fever chills. Patient denying any other significant discomfort. Patient is maintaining sinus rhythm. Patient is more alert and oriented today. Review of systems: Rest review of systems negative. Medications: Medications have been reviewed. Reason For Visit: SEPSIS,UTI,ARF Physical Exam Vital Signs: Temp Pulse Resp BP Pulse Ox 97.7 F 67 16 120/56 L 95 01/22/18 11:16 01/22/18 11:27 01/22/18 11:27 01/22/18 11:16 01/22/18 11:27 Intake & Output 01/21/18 01/22/18 01/23/18 06:59 06:59 06:59 Intake Total 2713 2840 873 Output Total 1400 450 Balance 2713 1440 423 Weight 96.9 kg 93 kg Exam: GENERAL: well-nourished and in no acute distress. Alert and oriented x3 HEAD: Atraumatic, normocephalic. EYES: Pupils equal round and reactive to light, extraocular movements intact, sclera anicteric, conjunctiva are normal. ENT: TMs normal, nares patent, oropharynx clear without exudates. Moist mucous membranes. No oral ulcerations or bleeding gums noted NECK: supple without lymphadenopathy. Trachea is central. No cervical or axillary lymphadenopathy noted. Carotids are 2+, JVD WNL LUNGS: Respiration seems nonlabored, no significant accessory muscle action noted. Few bibasilar crackles and few a scattered wheezes rales or rhonchi noted. No significant dullness noted on percussion. CHEST: Palpation of the chest wall shows no significant chest wall tenderness. 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 ABDOMEN: Soft, no significant tenderness appreciated, normoactive bowel sounds. No guarding, no rebound. No rigidity noted . No masses appreciated. EXTREMITIES: Pedal pulses are 1-2+, no calf tenderness noted. No clubbing or cyanosis. Trace pedal edema noted NEUROLOGICAL: Focused neurological exam showed no significant neurologic deficit. Normal speech, no focal weakness appreciated. PSYCH: Normal mood, normal affect. Judgment and insight within normal limits. SKIN: No significant ecchymosis, skin is noted to be warm. MUSCULOSKELETAL EXAM: No significant acute joint swelling noted. Results Laboratory Results: 01/22/18 04:51 01/22/18 04:51 01/22/18 01/22/18 01/22/18 04:51 04:51 04:51 WBC 18.1 H RBC 4.53 Hgb 13.0 Hct 38.7 MCV 85 MCH 28.8 MCHC 33.7 RDW 14.9 H Plt Count 100 L Seg Neutrophils % Not Reportable Lymphocytes % Not Reportable Monocytes % Not Reportable Eosinophils % Not Reportable Basophils % Not Reportable Absolute Neutrophils Not Reportable Absolute Lymphocytes Not Reportable Absolute Monocytes Not Reportable Absolute Eosinophils Not Reportable Absolute Basophils Not Reportable Sodium 134.2 L Potassium 4.0 Chloride 101 Carbon Dioxide 22 Anion Gap 11 BUN 44 H Creatinine 1.45 H Est GFR ( Amer) 42 L Est GFR (Non-Af Amer) 35 L Glucose 89 Lactic Acid 1.2 Calcium 8.2 L 01/16/18 01/16/18 01/17/18 20:45 20:45 03:05 Creatine Kinase 364 H CK-MB (CK-2) 2.41 1.36 Troponin I 0.021 0.022 NT-Pro-B Natriuret Pep 01/17/18 01/17/18 01/17/18 03:05 09:05 09:05 Creatine Kinase 342 H 264 H CK-MB (CK-2) 0.96 Troponin I 0.024 NT-Pro-B Natriuret Pep 01/18/18 01/18/18 01/18/18 16:12 16:12 22:17 Creatine Kinase 58 CK-MB (CK-2) 1.71 Troponin I 0.370 0.298 NT-Pro-B Natriuret Pep 01/22/18 04:51 Creatine Kinase CK-MB (CK-2) Troponin I NT-Pro-B Natriuret Pep 3010 H EKG Comments: Shows sinus rhythm without any sustained tachycardia or bradycardia Impressions: Chest X-Ray 01/19/18 00:00 IMPRESSION: NO ACUTE RADIOGRAPHIC FINDING IN THE CHEST. Chest CT 01/21/18 00:00 IMPRESSION: 1. Bilateral patchy ground-glass opacities, may represent multifocal pneumonia pulmonary edema or hemorrhage. Followup CT after treatment recommended to ensure complete resolution and exclude underlying neoplasm. 2. Cardiomegaly. Interstitial edema. Dilated main pulmonary artery, may be seen with pulmonary arterial hypertension. 3. Mild mediastinal adenopathy. Trace bilateral pleural effusions. Assessment & Plan - Diagnosis (1) Troponin level elevated Is this a current diagnosis for this admission?: Yes (2) HTN (hypertension) Qualifiers: Hypertension type: essential hypertension Qualified Code(s): I10 - Essential (primary) hypertension Is this a current diagnosis for this admission?: Yes (3) Gram-negative bacteremia Is this a current diagnosis for this admission?: Yes (4) Sepsis Qualifiers: Sepsis type: Escherichia coli Qualified Code(s): A41.51 - Sepsis due to Escherichia coli [E. coli] Is this a current diagnosis for this admission?: Yes (5) Thrombocytopenia Is this a current diagnosis for this admission?: Yes (6) CHF (congestive heart failure) Qualifiers: Heart failure type: diastolic Heart failure chronicity: chronic Qualified Code(s): I50.32 - Chronic diastolic (congestive) heart failure Is this a current diagnosis for this admission?: Yes - Notes Notes: Troponin I elevation: Most likely related to sepsis, bacteremia rather than acute coronary syndrome. Will repeat EKG again in the morning to look for any evolving changes. At this point recommend statins, beta blockers. Antiplatelet therapy started today. Hypertension: Currently under reasonable control. BP goal is 140/90 or less. Gram-negative bacteremia: Patient currently on antibiotic therapy. We will leave management plans to hospitalist. Sepsis: Currently improved. Thrombocytopenia: Possibly related to sepsis. Platelet count now above 100. Will start patient on Ecotrin. CHF: CT scan of the chest suggests CHF and some pulmonary hypertension. BNP also noted to be elevated. Will start patient on maintenance dose diuretic at 20 mg a day. Patient seems to have chronic CHF on diastolic dysfunction basis. DVT prophylaxis: Nurse given order to place patient on intermittent pneumatic compression devices. May start Lovenox at 30 mg for DVT prophylaxis. - Time Time with patient: 15-25 minutes - CODE STATUS : was discussed, patient remains DO NOT RESUSCITATE. Surrogate decision-maker unchanged. Multiple medical problems were addressed. More than 50% of the time spent coordinating care, discussing management plans with involved caregivers. Management plans discussed with involved personnels. Medical decision making was of moderate to high complexity, patient's has multiple comorbidities. Medications reviewed and adjusted accordingly: Yes
[2018-01-22] MEDS: VANCOMYCIN HCL 750 MG in DEXTROSE 5%-WATER 250 ML IV SCH (14:57)
[2018-01-22] MEDS: BENZONATATE 100 MG CAPSULE PO SCH ×2 (14:57→22:08)
[2018-01-22] MEDS ORDERED: ASPIRIN 81 MG TABLET, ENT COATED PO ONE (15:00)
[2018-01-22] MEDS: AMITRIPTYLINE HCL 25 MG TABLET PO SCH (22:08)
[2018-01-22] MEDS: ATORVASTATIN CALCIUM 40 MG TABLET PO SCH (22:08)
[2018-01-22] MEDS: MELATONIN 3 MG TABLET PO SCH (22:09)
[2018-01-23 05:03] LABS: ANION GAP 10 (5-19); BLOOD UREA NITROGEN 37 mg/dL (7-20); CALCIUM 8.3 mg/dL (8.4-10.2); CARBON DIOXIDE 22 mmol/L (22-30); CHLORIDE 102 mmol/L (98-107); GLUCOSE 86 mg/dL (75-110); POTASSIUM 3.9 mmol/L (3.6-5.0); SODIUM 133.9 mmol/L (137-145)
[2018-01-23 05:04] LABS: ABSOLUTE BASOPHILS # (AUTO) 0.1 10^3/uL (0.0-0.2); ABSOLUTE EOSINOPHILS # (AUTO) 0.9 10^3/uL (0.0-0.6); ABSOLUTE LYMPHOCYTES (AUTO) 2.1 10^3/uL (0.5-4.7); ABSOLUTE MONOCYTES (AUTO) 1.4 10^3/uL (0.1-1.4); ABSOLUTE NEUT (AUTO) 15.4 10^3/uL (1.7-8.2); BASOPHILS % (AUTO) 0.4 % (0-2); EOSINOPHILS % (AUTO) 4.4 % (0-6); HEMATOCRIT 38.7 % (36.0-47.0); HEMOGLOBIN 12.8 g/dL (12.0-15.5); LYMPHOCYTES % (AUTO) 10.5 % (13-45); MEAN CORPUSCULAR HEMOGLOBIN 28.3 pg (27.0-33.4); MEAN CORPUSCULAR HGB CONC 33.2 g/dL (32.0-36.0); MEAN CORPUSCULAR VOLUME 85 fl (80-97); MONOCYTES % (AUTO) 6.9 % (3-13); PLATELET COUNT 123 10^3/uL (150-450); RED BLOOD COUNT 4.53 10^6/uL (3.72-5.28); RED CELL DISTRIBUTION WIDTH 15.1 % (11.5-14.0); SEGMENTED NEUTROPHILS % (AUTO) 77.8 % (42-78); TOTAL CELLS COUNTED % (AUTO) 100 %; WHITE BLOOD COUNT 19.8 10^3/uL (4.0-10.5)
[2018-01-23] MEDS: BENZONATATE 100 MG CAPSULE PO SCH ×3 (05:36→22:06)
[2018-01-23] MEDS ORDERED: ASPIRIN 81 MG TABLET, ENT COATED PO SCH (10:00)
[2018-01-23] MEDS ORDERED: FUROSEMIDE 40 MG TABLET PO SCH (10:00)
[2018-01-23] MEDS: ESCITALOPRAM OXALATE 10 MG TABLET PO SCH (10:38)
[2018-01-23] MEDS: POLYETHYLENE GLYCOL 3350 POWDER 17 GM/1 PACKET PO SCH (10:39)
[2018-01-23] MEDS: BUPROPION HCL 75 MG TABLET PO SCH ×2 (10:39→22:06)
[2018-01-23] MEDS: CALCIUM CARBONATE 250 MG/VITAMIN D3 125 UNIT TABLET PO SCH (10:39)
[2018-01-23] MEDS: CEFEPIME 2 GM/D5W RTU 2 GM/50 ML RTUPB IV SCH (12:30)
[2018-01-23] MEDS: VANCOMYCIN HCL 750 MG in DEXTROSE 5%-WATER 250 ML IV SCH (13:29)
--- NOTE | 2018-01-23 14:07 | PDOC PROGRESS REPORT ---
Subjective Progress Note for:: 01/23/18 Subjective:: Patient's daughter at bedside. Patient noted to be sitting at bedside chair. Patient today more alert and more cheerful. Pt is denying any chest arm or neck discomfort. Patient denying any PND, orthopnea. Patient denied any sustained palpitations, dizziness, syncope, near syncope. Patient denying any fever chills. Patient denying any other significant discomfort. Patient is maintaining sinus rhythm. Patient is more alert and oriented today. Review of systems: Rest review of systems negative. Medications: Medications have been reviewed. Reason For Visit: SEPSIS,UTI,ARF Physical Exam Vital Signs: Temp Pulse Resp BP Pulse Ox 97.3 F 73 18 100/68 98 01/23/18 11:53 01/23/18 11:53 01/23/18 11:53 01/23/18 11:53 01/23/18 11:53 Intake & Output 01/22/18 01/23/18 01/24/18 06:59 06:59 06:59 Intake Total 2840 3363 Output Total 1400 1050 Balance 1440 2313 Weight 93 kg 93.7 kg Exam: GENERAL: well-nourished and in no acute distress. Alert and oriented x3 HEAD: Atraumatic, normocephalic. EYES: Pupils equal round and reactive to light, extraocular movements intact, sclera anicteric, conjunctiva are normal. ENT: TMs normal, nares patent, oropharynx clear without exudates. Moist mucous membranes. No oral ulcerations or bleeding gums noted NECK: supple without lymphadenopathy. Trachea is central. No cervical or axillary lymphadenopathy noted. Carotids are 2+, JVD WNL LUNGS: Respiration seems nonlabored, no significant accessory muscle action noted. Few bibasilar crackles are noted. No wheezes rales or rhonchi noted. No significant dullness noted on percussion. CHEST: Palpation of the chest wall shows no significant chest wall tenderness. 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 ABDOMEN: Soft, no significant tenderness appreciated, normoactive bowel sounds. No guarding, no rebound. No rigidity noted . No masses appreciated. EXTREMITIES: Pedal pulses are 1-2+, no calf tenderness noted. No clubbing or cyanosis. 1+ pedal edema noted NEUROLOGICAL: Focused neurological exam showed no significant neurologic deficit. Normal speech, no focal weakness appreciated. PSYCH: Normal mood, normal affect. Judgment and insight within normal limits. SKIN: No significant ecchymosis, skin is noted to be warm. MUSCULOSKELETAL EXAM: No significant acute joint swelling noted. Results Laboratory Results: 01/23/18 04:03 01/23/18 04:03 01/23/18 01/23/18 04:03 04:03 WBC 19.8 H RBC 4.53 Hgb 12.8 Hct 38.7 MCV 85 MCH 28.3 MCHC 33.2 RDW 15.1 H Plt Count 123 L Seg Neutrophils % 77.8 Lymphocytes % 10.5 L Monocytes % 6.9 Eosinophils % 4.4 Basophils % 0.4 Absolute Neutrophils 15.4 H Absolute Lymphocytes 2.1 Absolute Monocytes 1.4 Absolute Eosinophils 0.9 H Absolute Basophils 0.1 Sodium 133.9 L Potassium 3.9 Chloride 102 Carbon Dioxide 22 Anion Gap 10 BUN 37 H Creatinine 1.19 Est GFR ( Amer) 53 L Est GFR (Non-Af Amer) 44 L Glucose 86 Calcium 8.3 L 01/18/18 09:20 Blood Blood Culture - Final NO GROWTH IN 5 DAYS 01/18/18 09:37 Blood Blood Culture - Final NO GROWTH IN 5 DAYS 01/16/18 01/16/18 01/17/18 20:45 20:45 03:05 Creatine Kinase 364 H CK-MB (CK-2) 2.41 1.36 Troponin I 0.021 0.022 NT-Pro-B Natriuret Pep 01/17/18 01/17/18 01/17/18 03:05 09:05 09:05 Creatine Kinase 342 H 264 H CK-MB (CK-2) 0.96 Troponin I 0.024 NT-Pro-B Natriuret Pep 01/18/18 01/18/18 01/18/18 16:12 16:12 22:17 Creatine Kinase 58 CK-MB (CK-2) 1.71 Troponin I 0.370 0.298 NT-Pro-B Natriuret Pep 01/22/18 04:51 Creatine Kinase CK-MB (CK-2) Troponin I NT-Pro-B Natriuret Pep 3010 H Impressions: Chest X-Ray 01/19/18 00:00 IMPRESSION: NO ACUTE RADIOGRAPHIC FINDING IN THE CHEST. Chest CT 01/21/18 00:00 IMPRESSION: 1. Bilateral patchy ground-glass opacities, may represent multifocal pneumonia pulmonary edema or hemorrhage. Followup CT after treatment recommended to ensure complete resolution and exclude underlying neoplasm. 2. Cardiomegaly. Interstitial edema. Dilated main pulmonary artery, may be seen with pulmonary arterial hypertension. 3. Mild mediastinal adenopathy. Trace bilateral pleural effusions. Assessment & Plan - Diagnosis (1) Troponin level elevated Is this a current diagnosis for this admission?: Yes (2) HTN (hypertension) Qualifiers: Hypertension type: essential hypertension Qualified Code(s): I10 - Essential (primary) hypertension Is this a current diagnosis for this admission?: Yes (3) Gram-negative bacteremia Is this a current diagnosis for this admission?: Yes (4) Sepsis Qualifiers: Sepsis type: Escherichia coli Qualified Code(s): A41.51 - Sepsis due to Escherichia coli [E. coli] Is this a current diagnosis for this admission?: Yes (5) Thrombocytopenia Is this a current diagnosis for this admission?: Yes (6) CHF (congestive heart failure) Qualifiers: Heart failure type: diastolic Heart failure chronicity: chronic Qualified Code(s): I50.32 - Chronic diastolic (congestive) heart failure Is this a current diagnosis for this admission?: Yes - Notes Notes: Troponin I elevation: Most likely related to sepsis, bacteremia rather than acute coronary syndrome. Continue statins, beta blockers. Antiplatelet therapy started today. Currently patient on Ecotrin 81 mg p.o. daily. Hypertension: Currently under reasonable control. BP goal is 140/90 or less. Gram-negative bacteremia: Patient currently on antibiotic therapy. We will leave management plans to hospitalist. Sepsis: Currently improved. Thrombocytopenia: Possibly related to sepsis. Platelet count now above 100. CHF: CT scan of the chest suggests CHF and some pulmonary hypertension. BNP also noted to be elevated. Will start patient on maintenance dose diuretic at Lasix 20 mg a day. Patient seems to have chronic CHF on diastolic dysfunction basis. DVT prophylaxis: Nurse given order to place patient on intermittent pneumatic compression devices. May start Lovenox at 30 mg for DVT prophylaxis. - Time Time with patient: Greater than 35 minutes - CODE STATUS was discussed, patient remains DNR. Surrogate decision-maker unchanged. Multiple medical problems were addressed. More than 50% of the time spent coordinating care, discussing management plans with involved caregivers. Management plans discussed with involved personnels. Medical decision making was of moderate to high complexity , patient's has multiple comorbidities. Medications reviewed and adjusted accordingly: Yes
[2018-01-23] MEDS: IPRATROPIUM/ALBUTEROL 0.5-2.5 MG/3 ML AMPUL NEB PRN (14:50)
--- NOTE | 2018-01-23 18:33 | PDOC PROGRESS REPORT ---
Subjective Progress Note for:: 01/23/18 Subjective:: Patient is resting in bed comfortably. She is surrounded by family members. She reports feeling a little bit better. Vital signs are relatively stable. Her blood work shows her WBC count is slightly trending up. Her kidney function normalized. Patient is currently being managed as a case of possible healthcare associated pneumonia based on her CT scan of the chest. Reason For Visit: SEPSIS,UTI,ARF Physical Exam Vital Signs: Temp Pulse Resp BP Pulse Ox 97.8 F 72 20 136/59 H 98 01/23/18 15:18 01/23/18 15:18 01/23/18 15:18 01/23/18 15:18 01/23/18 15:18 Intake & Output 01/22/18 01/23/18 01/24/18 06:59 06:59 06:59 Intake Total 2840 3363 715 Output Total 1400 1050 300 Balance 1440 2313 415 Weight 93 kg 93.7 kg Results Laboratory Results: 01/23/18 04:03 01/23/18 04:03 01/23/18 01/23/18 04:03 04:03 WBC 19.8 H RBC 4.53 Hgb 12.8 Hct 38.7 MCV 85 MCH 28.3 MCHC 33.2 RDW 15.1 H Plt Count 123 L Seg Neutrophils % 77.8 Lymphocytes % 10.5 L Monocytes % 6.9 Eosinophils % 4.4 Basophils % 0.4 Absolute Neutrophils 15.4 H Absolute Lymphocytes 2.1 Absolute Monocytes 1.4 Absolute Eosinophils 0.9 H Absolute Basophils 0.1 Sodium 133.9 L Potassium 3.9 Chloride 102 Carbon Dioxide 22 Anion Gap 10 BUN 37 H Creatinine 1.19 Est GFR ( Amer) 53 L Est GFR (Non-Af Amer) 44 L Glucose 86 Calcium 8.3 L 01/18/18 09:20 Blood Blood Culture - Final NO GROWTH IN 5 DAYS 01/18/18 09:37 Blood Blood Culture - Final NO GROWTH IN 5 DAYS 01/16/18 01/16/18 01/17/18 20:45 20:45 03:05 Creatine Kinase 364 H CK-MB (CK-2) 2.41 1.36 Troponin I 0.021 0.022 NT-Pro-B Natriuret Pep 01/17/18 01/17/18 01/17/18 03:05 09:05 09:05 Creatine Kinase 342 H 264 H CK-MB (CK-2) 0.96 Troponin I 0.024 NT-Pro-B Natriuret Pep 01/18/18 01/18/18 01/18/18 16:12 16:12 22:17 Creatine Kinase 58 CK-MB (CK-2) 1.71 Troponin I 0.370 0.298 NT-Pro-B Natriuret Pep 01/22/18 04:51 Creatine Kinase CK-MB (CK-2) Troponin I NT-Pro-B Natriuret Pep 3010 H Impressions: Chest X-Ray 01/19/18 00:00 IMPRESSION: NO ACUTE RADIOGRAPHIC FINDING IN THE CHEST. Chest CT 01/21/18 00:00 IMPRESSION: 1. Bilateral patchy ground-glass opacities, may represent multifocal pneumonia pulmonary edema or hemorrhage. Followup CT after treatment recommended to ensure complete resolution and exclude underlying neoplasm. 2. Cardiomegaly. Interstitial edema. Dilated main pulmonary artery, may be seen with pulmonary arterial hypertension. 3. Mild mediastinal adenopathy. Trace bilateral pleural effusions. Assessment & Plan - Diagnosis (1) Gram-negative bacteremia and sepsis Is this a current diagnosis for this admission?: Yes Plan: Initially patient has been treated with ceftriaxone and her latest blood cultures negative. (2) Suspected healthcare associated pneumo Is this a current diagnosis for this admission?: Yes Plan: Continue cefepime and vancomycin. (3) UTI (urinary tract infection) Qualifiers: Indwelling urinary catheter type: unspecified Is this a current diagnosis for this admission?: Yes Plan: Continue cefepime (4) KAMI (acute kidney injury) Is this a current diagnosis for this admission?: Yes Plan: Resolved (5) Leukocytosis Qualifiers: Leukocytosis type: unspecified Qualified Code(s): D72.829 - Elevated white blood cell count, unspecified Is this a current diagnosis for this admission?: Yes Plan: Still she has leukocytosis. (6) Troponin level elevated Is this a current diagnosis for this admission?: Yes Plan: Due to sepsis (7) Hypothyroidism Is this a current diagnosis for this admission?: Yes Plan: Continue Synthroid (8) Depression Qualifiers: Major depression episode severity: unspecified Is this a current diagnosis for this admission?: Yes Plan: Continue her home medications.
[2018-01-23] MEDS: PIPERACILLIN SODIUM/TAZOBACTAM 3.375 GM in NORMAL SALINE 100 ML IV SCH (18:44)
[2018-01-23] MEDS: ATORVASTATIN CALCIUM 40 MG TABLET PO SCH (22:05)
[2018-01-23] MEDS: MELATONIN 3 MG TABLET PO SCH (22:06)
[2018-01-23] MEDS: AMITRIPTYLINE HCL 25 MG TABLET PO SCH (22:06)
[2018-01-24] MEDS: PIPERACILLIN SODIUM/TAZOBACTAM 3.375 GM in NORMAL SALINE 100 ML IV SCH ×6 (01:10→23:51)
[2018-01-24] MEDS: BENZONATATE 100 MG CAPSULE PO SCH ×3 (05:52→22:52)
[2018-01-24] MEDS: IPRATROPIUM/ALBUTEROL 0.5-2.5 MG/3 ML AMPUL NEB PRN (08:43)
[2018-01-24] MEDS: CALCIUM CARBONATE 250 MG/VITAMIN D3 125 UNIT TABLET PO SCH (09:29)
[2018-01-24] MEDS: FUROSEMIDE 20 MG TABLET PO SCH (09:29)
[2018-01-24] MEDS: ESCITALOPRAM OXALATE 10 MG TABLET PO SCH (09:29)
[2018-01-24] MEDS: ASPIRIN 81 MG TABLET, ENT COATED PO SCH (09:31)
[2018-01-24 09:49] LABS: ABSOLUTE BASOPHILS # (AUTO) 0.1 10^3/uL (0.0-0.2); ABSOLUTE EOSINOPHILS # (AUTO) 0.7 10^3/uL (0.0-0.6); ABSOLUTE LYMPHOCYTES (AUTO) 1.7 10^3/uL (0.5-4.7); ABSOLUTE MONOCYTES (AUTO) 0.7 10^3/uL (0.1-1.4); ABSOLUTE NEUT (AUTO) 11.9 10^3/uL (1.7-8.2); BASOPHILS % (AUTO) 0.8 % (0-2); EOSINOPHILS % (AUTO) 4.8 % (0-6); HEMATOCRIT 40.7 % (36.0-47.0); HEMOGLOBIN 13.4 g/dL (12.0-15.5); MEAN CORPUSCULAR HEMOGLOBIN 28.2 pg (27.0-33.4); MEAN CORPUSCULAR HGB CONC 32.9 g/dL (32.0-36.0); MEAN CORPUSCULAR VOLUME 86 fl (80-97); MONOCYTES % (AUTO) 4.9 % (3-13); PLATELET COUNT 183 10^3/uL (150-450); RED BLOOD COUNT 4.75 10^6/uL (3.72-5.28); RED CELL DISTRIBUTION WIDTH 15.3 % (11.5-14.0); SEGMENTED NEUTROPHILS % (AUTO) 78.5 % (42-78); TOTAL CELLS COUNTED % (AUTO) 100 %; WHITE BLOOD COUNT 15.2 10^3/uL (4.0-10.5)
[2018-01-24 12:16] LABS: ANION GAP 8 (5-19); BLOOD UREA NITROGEN 32 mg/dL (7-20); CALCIUM 8.5 mg/dL (8.4-10.2); CARBON DIOXIDE 28 mmol/L (22-30); CHLORIDE 99 mmol/L (98-107); GLUCOSE 106 mg/dL (75-110); POTASSIUM 3.8 mmol/L (3.6-5.0); SODIUM 135.4 mmol/L (137-145)
[2018-01-24] MEDS: BUPROPION HCL 75 MG TABLET PO SCH ×2 (14:15→22:54)
[2018-01-24 15:17] LABS: VANCOMYCIN,TROUGH 11.7 ug/mL (5.0-20.0)
[2018-01-24] MEDS: VANCOMYCIN HCL 750 MG in DEXTROSE 5%-WATER 250 ML IV SCH (18:09)
[2018-01-24] MEDS: NORMAL SALINE 1000 ML 1,000 ML IV PRN (18:13)
--- NOTE | 2018-01-24 19:42 | PDOC PROGRESS REPORT ---
Subjective Progress Note for:: 01/24/18 Subjective:: Patient is exceptionally much better today. I found her sitting on recliner and enjoying her breakfast. No acute complaints. Reason For Visit: SEPSIS,UTI,ARF Physical Exam Vital Signs: Temp Pulse Resp BP Pulse Ox 98.1 F 76 19 113/60 98 01/24/18 15:23 01/24/18 15:23 01/24/18 15:23 01/24/18 15:23 01/24/18 15:34 Intake & Output 01/23/18 01/24/18 01/25/18 06:59 06:59 06:59 Intake Total 3363 2165 875 Output Total 1050 900 Balance 2313 1265 875 Weight 93.7 kg 92.3 kg Results Laboratory Results: 01/24/18 08:56 01/24/18 13:45 01/24/18 01/24/18 01/24/18 08:56 08:56 11:40 WBC 15.2 H RBC 4.75 Hgb 13.4 Hct 40.7 MCV 86 MCH 28.2 MCHC 32.9 RDW 15.3 H Plt Count 183 Seg Neutrophils % 78.5 H Lymphocytes % 11.0 L Monocytes % 4.9 Eosinophils % 4.8 Basophils % 0.8 Absolute Neutrophils 11.9 H Absolute Lymphocytes 1.7 Absolute Monocytes 0.7 Absolute Eosinophils 0.7 H Absolute Basophils 0.1 Sodium Cancelled 135.4 L Potassium Cancelled 3.8 Chloride Cancelled 99 Carbon Dioxide Cancelled 28 Anion Gap Cancelled 8 BUN Cancelled 32 H Creatinine Cancelled 1.29 H Est GFR ( Amer) Cancelled 48 L Est GFR (Non-Af Amer) Cancelled 40 L Glucose Cancelled 106 Calcium Cancelled 8.5 01/24/18 13:45 WBC RBC Hgb Hct MCV MCH MCHC RDW Plt Count Seg Neutrophils % Lymphocytes % Monocytes % Eosinophils % Basophils % Absolute Neutrophils Absolute Lymphocytes Absolute Monocytes Absolute Eosinophils Absolute Basophils Sodium Potassium Chloride Carbon Dioxide Anion Gap BUN Creatinine 1.32 H Est GFR ( Amer) 47 L Est GFR (Non-Af Amer) 39 L Glucose Calcium 01/16/18 01/16/18 01/17/18 20:45 20:45 03:05 Creatine Kinase 364 H CK-MB (CK-2) 2.41 1.36 Troponin I 0.021 0.022 NT-Pro-B Natriuret Pep 01/17/18 01/17/18 01/17/18 03:05 09:05 09:05 Creatine Kinase 342 H 264 H CK-MB (CK-2) 0.96 Troponin I 0.024 NT-Pro-B Natriuret Pep 01/18/18 01/18/18 01/18/18 16:12 16:12 22:17 Creatine Kinase 58 CK-MB (CK-2) 1.71 Troponin I 0.370 0.298 NT-Pro-B Natriuret Pep 01/22/18 04:51 Creatine Kinase CK-MB (CK-2) Troponin I NT-Pro-B Natriuret Pep 3010 H Impressions: Chest X-Ray 01/19/18 00:00 IMPRESSION: NO ACUTE RADIOGRAPHIC FINDING IN THE CHEST. Chest CT 01/21/18 00:00 IMPRESSION: 1. Bilateral patchy ground-glass opacities, may represent multifocal pneumonia pulmonary edema or hemorrhage. Followup CT after treatment recommended to ensure complete resolution and exclude underlying neoplasm. 2. Cardiomegaly. Interstitial edema. Dilated main pulmonary artery, may be seen with pulmonary arterial hypertension. 3. Mild mediastinal adenopathy. Trace bilateral pleural effusions. Assessment & Plan - Diagnosis (1) Gram-negative bacteremia and sepsis Is this a current diagnosis for this admission?: Yes Plan: Continue vancomycin and cefepime. (2) Suspected healthcare associated pneumo Is this a current diagnosis for this admission?: Yes Plan: Continue vancomycin and cefepime. (3) UTI (urinary tract infection) Qualifiers: Indwelling urinary catheter type: unspecified Is this a current diagnosis for this admission?: Yes Plan: Continue cefepime (4) KAMI (acute kidney injury) Is this a current diagnosis for this admission?: Yes Plan: Has resolved. (5) Leukocytosis Qualifiers: Leukocytosis type: unspecified Qualified Code(s): D72.829 - Elevated white blood cell count, unspecified Is this a current diagnosis for this admission?: Yes Plan: Resolving (6) Troponin level elevated Is this a current diagnosis for this admission?: Yes Plan: Due to sepsis (7) Hypothyroidism Is this a current diagnosis for this admission?: Yes Plan: Continue Synthroid (8) Depression Qualifiers: Major depression episode severity: unspecified Is this a current diagnosis for this admission?: Yes Plan: Continue her home medications.
--- NOTE | 2018-01-24 19:46 | PDOC PROGRESS REPORT ---
Subjective Progress Note for:: 01/24/18 Subjective:: Patient's daughter at bedside. Patient noted to be sitting at bedside chair. Patient today more alert and more cheerful. Patient has made significant recovery. Pt is denying any chest arm or neck discomfort. Patient denying any PND, orthopnea. Patient denied any sustained palpitations, dizziness, syncope, near syncope. Patient denying any fever chills. Patient denying any other significant discomfort. Patient is maintaining sinus rhythm. Patient is more alert and oriented today. Review of systems: Rest review of systems negative. Medications: Medications have been reviewed. Reason For Visit: SEPSIS,UTI,ARF Physical Exam Vital Signs: Temp Pulse Resp BP Pulse Ox 98.1 F 76 19 113/60 98 01/24/18 15:23 01/24/18 15:23 01/24/18 15:23 01/24/18 15:23 01/24/18 15:34 Intake & Output 01/23/18 01/24/18 01/25/18 06:59 06:59 06:59 Intake Total 3363 2165 875 Output Total 1050 900 Balance 2313 1265 875 Weight 93.7 kg 92.3 kg Exam: GENERAL: well-nourished and in no acute distress. Alert and oriented x3 HEAD: Atraumatic, normocephalic. EYES: Pupils equal round and reactive to light, extraocular movements intact, sclera anicteric, conjunctiva are normal. ENT: TMs normal, nares patent, oropharynx clear without exudates. Moist mucous membranes. No oral ulcerations or bleeding gums noted NECK: supple without lymphadenopathy. Trachea is central. No cervical or axillary lymphadenopathy noted. Carotids are 2+, JVD WNL LUNGS: Respiration seems nonlabored, no significant accessory muscle action noted. Breath sounds clear to auscultation bilaterally and equal noted. No wheezes rales or rhonchi noted. No significant dullness noted on percussion. CHEST: Palpation of the chest wall shows no significant chest wall tenderness. HEART: [place] WORK[employer]ANT, No PSH, 1/6 SHEREEN aortic area, 1/6 burrell systolic murmur mitral area, no rubs, no gallops. ABDOMEN: Soft, no significant tenderness appreciated, normoactive bowel sounds. No guarding, no rebound. No rigidity noted . No masses appreciated. EXTREMITIES: Pedal pulses are 1-2+, no calf tenderness noted. No clubbing or cyanosis. negative pedal edema noted NEUROLOGICAL: Focused neurological exam showed no significant neurologic deficit. Normal speech, no focal weakness appreciated. PSYCH: Normal mood, normal affect. Judgment and insight within normal limits. SKIN: No significant ecchymosis, skin is noted to be warm. MUSCULOSKELETAL EXAM: No significant acute joint swelling noted. Results Laboratory Results: 01/24/18 08:56 01/24/18 13:45 01/24/18 01/24/18 01/24/18 08:56 08:56 11:40 WBC 15.2 H RBC 4.75 Hgb 13.4 Hct 40.7 MCV 86 MCH 28.2 MCHC 32.9 RDW 15.3 H Plt Count 183 Seg Neutrophils % 78.5 H Lymphocytes % 11.0 L Monocytes % 4.9 Eosinophils % 4.8 Basophils % 0.8 Absolute Neutrophils 11.9 H Absolute Lymphocytes 1.7 Absolute Monocytes 0.7 Absolute Eosinophils 0.7 H Absolute Basophils 0.1 Sodium Cancelled 135.4 L Potassium Cancelled 3.8 Chloride Cancelled 99 Carbon Dioxide Cancelled 28 Anion Gap Cancelled 8 BUN Cancelled 32 H Creatinine Cancelled 1.29 H Est GFR ( Amer) Cancelled 48 L Est GFR (Non-Af Amer) Cancelled 40 L Glucose Cancelled 106 Calcium Cancelled 8.5 01/24/18 13:45 WBC RBC Hgb Hct MCV MCH MCHC RDW Plt Count Seg Neutrophils % Lymphocytes % Monocytes % Eosinophils % Basophils % Absolute Neutrophils Absolute Lymphocytes Absolute Monocytes Absolute Eosinophils Absolute Basophils Sodium Potassium Chloride Carbon Dioxide Anion Gap BUN Creatinine 1.32 H Est GFR ( Amer) 47 L Est GFR (Non-Af Amer) 39 L Glucose Calcium 01/16/18 01/16/18 01/17/18 20:45 20:45 03:05 Creatine Kinase 364 H CK-MB (CK-2) 2.41 1.36 Troponin I 0.021 0.022 NT-Pro-B Natriuret Pep 01/17/18 01/17/18 01/17/18 03:05 09:05 09:05 Creatine Kinase 342 H 264 H CK-MB (CK-2) 0.96 Troponin I 0.024 NT-Pro-B Natriuret Pep 01/18/18 01/18/18 01/18/18 16:12 16:12 22:17 Creatine Kinase 58 CK-MB (CK-2) 1.71 Troponin I 0.370 0.298 NT-Pro-B Natriuret Pep 01/22/18 04:51 Creatine Kinase CK-MB (CK-2) Troponin I NT-Pro-B Natriuret Pep 3010 H EKG Comments: Telemetry shows sinus rhythm without any sustained tachycardia or bradycardia. Impressions: Chest X-Ray 01/19/18 00:00 IMPRESSION: NO ACUTE RADIOGRAPHIC FINDING IN THE CHEST. Chest CT 01/21/18 00:00 IMPRESSION: 1. Bilateral patchy ground-glass opacities, may represent multifocal pneumonia pulmonary edema or hemorrhage. Followup CT after treatment recommended to ensure complete resolution and exclude underlying neoplasm. 2. Cardiomegaly. Interstitial edema. Dilated main pulmonary artery, may be seen with pulmonary arterial hypertension. 3. Mild mediastinal adenopathy. Trace bilateral pleural effusions. Assessment & Plan - Diagnosis (1) Troponin level elevated Is this a current diagnosis for this admission?: Yes (2) HTN (hypertension) Qualifiers: Hypertension type: essential hypertension Qualified Code(s): I10 - Essential (primary) hypertension Is this a current diagnosis for this admission?: Yes (3) Gram-negative bacteremia Is this a current diagnosis for this admission?: Yes (4) Sepsis Qualifiers: Sepsis type: Escherichia coli Qualified Code(s): A41.51 - Sepsis due to Escherichia coli [E. coli] Is this a current diagnosis for this admission?: Yes (5) Thrombocytopenia Is this a current diagnosis for this admission?: Yes (6) CHF (congestive heart failure) Qualifiers: Heart failure type: diastolic Heart failure chronicity: chronic Qualified Code(s): I50.32 - Chronic diastolic (congestive) heart failure Is this a current diagnosis for this admission?: Yes - Notes Notes: Troponin I elevation: Most likely related to sepsis, bacteremia rather than acute coronary syndrome. Continue statins, beta blockers. Antiplatelet therapy started today. Currently patient on Ecotrin 81 mg p.o. daily. Would recommend DVT prophylaxis with Lovenox. Hypertension: Currently under reasonable control. BP goal is 140/90 or less. Gram-negative bacteremia: Patient currently on antibiotic therapy. We will leave management plans to hospitalist. Sepsis: Currently improved. Thrombocytopenia: Possibly related to sepsis. This has resolved. CHF: CT scan of the chest suggests CHF and some pulmonary hypertension. BNP also noted to be elevated. Continue maintenance dose diuretic at Lasix 20 mg a day. Patient seems to have chronic CHF on diastolic dysfunction basis. DVT prophylaxis: Nurse given order to place patient on intermittent pneumatic compression devices. Recommend start Lovenox at 30 mg for DVT prophylaxis. - Time Time with patient: 15-25 minutes - CODE STATUS : was discussed, patient remains DO NOT RESUSCITATE. Surrogate decision-maker unchanged. Multiple medical problems were addressed. More than 50% of the time spent coordinating care, discussing management plans with involved caregivers. Management plans discussed with involved personnels. Medical decision making was of moderate to high complexity, patient's has multiple comorbidities.
[2018-01-24] MEDS: MELATONIN 3 MG TABLET PO SCH (22:52)
[2018-01-24] MEDS: AMITRIPTYLINE HCL 25 MG TABLET PO SCH (22:52)
[2018-01-24] MEDS: ATORVASTATIN CALCIUM 20 MG TABLET PO SCH (22:52)
[2018-01-24] MEDS: POLYETHYLENE GLYCOL 3350 POWDER 17 GM/1 PACKET PO SCH (22:53)
[2018-01-25] MEDS: PIPERACILLIN SODIUM/TAZOBACTAM 3.375 GM in NORMAL SALINE 100 ML IV SCH ×3 (06:14→17:46)
[2018-01-25] MEDS: BENZONATATE 100 MG CAPSULE PO SCH ×3 (06:14→22:09)
[2018-01-25 10:24] LABS: ABSOLUTE BASOPHILS # (AUTO) 0.1 10^3/uL (0.0-0.2); ABSOLUTE EOSINOPHILS # (AUTO) 0.5 10^3/uL (0.0-0.6); ABSOLUTE LYMPHOCYTES (AUTO) 1.9 10^3/uL (0.5-4.7); ABSOLUTE NEUT (AUTO) 14.3 10^3/uL (1.7-8.2); BASOPHILS % (AUTO) 0.7 % (0-2); EOSINOPHILS % (AUTO) 2.7 % (0-6); HEMATOCRIT 39.3 % (36.0-47.0); HEMOGLOBIN 13.1 g/dL (12.0-15.5); LYMPHOCYTES % (AUTO) 10.6 % (13-45); MEAN CORPUSCULAR HEMOGLOBIN 28.3 pg (27.0-33.4); MEAN CORPUSCULAR HGB CONC 33.2 g/dL (32.0-36.0); MEAN CORPUSCULAR VOLUME 85 fl (80-97); MONOCYTES % (AUTO) 5.4 % (3-13); PLATELET COUNT 217 10^3/uL (150-450); RED BLOOD COUNT 4.61 10^6/uL (3.72-5.28); RED CELL DISTRIBUTION WIDTH 15.2 % (11.5-14.0); SEGMENTED NEUTROPHILS % (AUTO) 80.6 % (42-78); TOTAL CELLS COUNTED % (AUTO) 100 %; WHITE BLOOD COUNT 17.8 10^3/uL (4.0-10.5)
[2018-01-25 10:36] LABS: ANION GAP 10 (5-19); BLOOD UREA NITROGEN 27 mg/dL (7-20); CALCIUM 8.2 mg/dL (8.4-10.2); CARBON DIOXIDE 24 mmol/L (22-30); CHLORIDE 101 mmol/L (98-107); GLUCOSE 94 mg/dL (75-110); POTASSIUM 4.1 mmol/L (3.6-5.0); SODIUM 134.9 mmol/L (137-145)
[2018-01-25] MEDS: IPRATROPIUM/ALBUTEROL 0.5-2.5 MG/3 ML AMPUL NEB PRN (10:37)
[2018-01-25] MEDS: CALCIUM CARBONATE 250 MG/VITAMIN D3 125 UNIT TABLET PO SCH (10:42)
[2018-01-25] MEDS: BUPROPION HCL 75 MG TABLET PO SCH ×2 (10:42→22:13)
[2018-01-25] MEDS: ESCITALOPRAM OXALATE 10 MG TABLET PO SCH (10:42)
[2018-01-25] MEDS: ASPIRIN 81 MG TABLET, ENT COATED PO SCH (10:42)
[2018-01-25] MEDS: FUROSEMIDE 20 MG TABLET PO SCH (10:43)
--- NOTE | 2018-01-25 11:58 | PDOC PROGRESS REPORT ---
Subjective Progress Note for:: 01/25/18 Subjective:: Patient daughter is somewhat concerned about elevated white cell count but there is no fever or chills. Blood cultures have now come back negative. Platelet count is significantly improved. Patient tells me that she has ambulated in the hallway. Patient's daughter at bedside. Patient noted to be sitting at bedside chair. Patient today more alert and more cheerful. Patient has made significant recovery. Pt is denying any chest arm or neck discomfort. Patient denying any PND, orthopnea. Patient denied any sustained palpitations, dizziness, syncope, near syncope. Patient denying any fever chills. Patient denying any other significant discomfort. Patient is maintaining sinus rhythm. Patient is more alert and oriented today. Review of systems: Rest review of systems negative. Medications: Medications have been reviewed. Reason For Visit: SEPSIS,UTI,ARF Physical Exam Vital Signs: Temp Pulse Resp BP Pulse Ox 98.1 F 66 16 116/50 L 92 01/25/18 09:21 01/25/18 10:37 01/25/18 10:37 01/25/18 09:21 01/25/18 10:37 Intake & Output 01/24/18 01/25/18 01/26/18 06:59 06:59 06:59 Intake Total 2165 2799 Output Total 900 200 200 Balance 1265 2599 -200 Weight 92.3 kg 92.5 kg Exam: GENERAL: well-nourished and in no acute distress. Alert and oriented x3 HEAD: Atraumatic, normocephalic. EYES: Pupils equal round and reactive to light, extraocular movements intact, sclera anicteric, conjunctiva are normal. ENT: TMs normal, nares patent, oropharynx clear without exudates. Moist mucous membranes. No oral ulcerations or bleeding gums noted NECK: supple without lymphadenopathy. Trachea is central. No cervical or axillary lymphadenopathy noted. Carotids are 2+, JVD WNL LUNGS: Respiration seems nonlabored, no significant accessory muscle action noted. Breath sounds clear to auscultation bilaterally and equal noted. No wheezes rales or rhonchi noted. No significant dullness noted on percussion. CHEST: Palpation of the chest wall shows no significant chest wall tenderness. HEART: [place] [employer] WORKER, No PSH, 1/6 SHEREEN aortic area, 1/6 burrell systolic murmur mitral area, no rubs, no gallops. ABDOMEN: Soft, no significant tenderness appreciated, normoactive bowel sounds. No guarding, no rebound. No rigidity noted . No masses appreciated. EXTREMITIES: Pedal pulses are 1-2+, no calf tenderness noted. No clubbing or cyanosis. negative pedal edema noted NEUROLOGICAL: Focused neurological exam showed no significant neurologic deficit. Normal speech, no focal weakness appreciated. PSYCH: Normal mood, normal affect. Judgment and insight within normal limits. SKIN: No significant ecchymosis, skin is noted to be warm. MUSCULOSKELETAL EXAM: No significant acute joint swelling noted. Results Laboratory Results: 01/25/18 09:19 01/25/18 10:03 01/24/18 01/24/18 01/25/18 11:40 13:45 09:19 WBC 17.8 H RBC 4.61 Hgb 13.1 Hct 39.3 MCV 85 MCH 28.3 MCHC 33.2 RDW 15.2 H Plt Count 217 Seg Neutrophils % 80.6 H Lymphocytes % 10.6 L Monocytes % 5.4 Eosinophils % 2.7 Basophils % 0.7 Absolute Neutrophils 14.3 H Absolute Lymphocytes 1.9 Absolute Monocytes 1.0 Absolute Eosinophils 0.5 Absolute Basophils 0.1 Sodium 135.4 L Potassium 3.8 Chloride 99 Carbon Dioxide 28 Anion Gap 8 BUN 32 H Creatinine 1.29 H 1.32 H Est GFR ( Amer) 48 L 47 L Est GFR (Non-Af Amer) 40 L 39 L Glucose 106 Calcium 8.5 01/25/18 10:03 WBC RBC Hgb Hct MCV MCH MCHC RDW Plt Count Seg Neutrophils % Lymphocytes % Monocytes % Eosinophils % Basophils % Absolute Neutrophils Absolute Lymphocytes Absolute Monocytes Absolute Eosinophils Absolute Basophils Sodium 134.9 L Potassium 4.1 Chloride 101 Carbon Dioxide 24 Anion Gap 10 BUN 27 H Creatinine 1.27 H Est GFR ( Amer) 49 L Est GFR (Non-Af Amer) 40 L Glucose 94 Calcium 8.2 L 01/16/18 01/16/18 01/17/18 20:45 20:45 03:05 Creatine Kinase 364 H CK-MB (CK-2) 2.41 1.36 Troponin I 0.021 0.022 NT-Pro-B Natriuret Pep 01/17/18 01/17/18 01/17/18 03:05 09:05 09:05 Creatine Kinase 342 H 264 H CK-MB (CK-2) 0.96 Troponin I 0.024 NT-Pro-B Natriuret Pep 01/18/18 01/18/18 01/18/18 16:12 16:12 22:17 Creatine Kinase 58 CK-MB (CK-2) 1.71 Troponin I 0.370 0.298 NT-Pro-B Natriuret Pep 01/22/18 04:51 Creatine Kinase CK-MB (CK-2) Troponin I NT-Pro-B Natriuret Pep 3010 H EKG Comments: Shows sinus rhythm without any sustained tachycardia or bradycardia Impressions: Chest X-Ray 01/19/18 00:00 IMPRESSION: NO ACUTE RADIOGRAPHIC FINDING IN THE CHEST. Chest CT 01/21/18 00:00 IMPRESSION: 1. Bilateral patchy ground-glass opacities, may represent multifocal pneumonia pulmonary edema or hemorrhage. Followup CT after treatment recommended to ensure complete resolution and exclude underlying neoplasm. 2. Cardiomegaly. Interstitial edema. Dilated main pulmonary artery, may be seen with pulmonary arterial hypertension. 3. Mild mediastinal adenopathy. Trace bilateral pleural effusions. Assessment & Plan - Diagnosis (1) Troponin level elevated Is this a current diagnosis for this admission?: Yes (2) HTN (hypertension) Qualifiers: Hypertension type: essential hypertension Qualified Code(s): I10 - Essential (primary) hypertension Is this a current diagnosis for this admission?: Yes (3) Gram-negative bacteremia Is this a current diagnosis for this admission?: Yes (4) Sepsis Qualifiers: Sepsis type: Escherichia coli Qualified Code(s): A41.51 - Sepsis due to Escherichia coli [E. coli] Is this a current diagnosis for this admission?: Yes (5) Thrombocytopenia Is this a current diagnosis for this admission?: Yes (6) CHF (congestive heart failure) Qualifiers: Heart failure type: diastolic Heart failure chronicity: chronic Qualified Code(s): I50.32 - Chronic diastolic (congestive) heart failure Is this a current diagnosis for this admission?: Yes - Notes Notes: Troponin I elevation: Most likely related to sepsis, bacteremia rather than acute coronary syndrome. Continue statins, beta blockers. Antiplatelet therapy started today. Currently patient on Ecotrin 81 mg p.o. daily. Would recommend DVT prophylaxis with Lovenox. Patient has remained stable from cardiac standpoint for last several days. Today she was able to ambulate in the hallway with suggest significant improvement. Will sign off at this point. Please reconsult if needed. Hypertension: Currently under reasonable control. BP goal is 140/90 or less. Gram-negative bacteremia: Patient currently on antibiotic therapy. We will leave management plans to hospitalist. Follow-up blood cultures has been negative. Sepsis: Currently improved. Thrombocytopenia: Possibly related to sepsis. This has resolved. CHF: CT scan of the chest suggests CHF and some pulmonary hypertension. BNP also noted to be elevated. Continue maintenance dose diuretic at Lasix 20 mg a day. Patient seems to have chronic CHF on diastolic dysfunction basis. CHF seems compensated. DVT prophylaxis: Recommend start Lovenox at 30 mg for DVT prophylaxis. Patient not ambulatory. Will sign off. Please reconsult if needed. - Time Time with patient: Greater than 35 minutes - CODE STATUS : was discussed, patient remains DO NOT RESUSCITATE. Surrogate decision-maker unchanged. Multiple medical problems were addressed. More than 50% of the time spent coordinating care, discussing management plans with involved caregivers. Management plans discussed with involved personnels. Medical decision making was of moderate to high complexity, patient's has multiple comorbidities. Medications reviewed and adjusted accordingly: Yes
[2018-01-25] MEDS: NORMAL SALINE 1000 ML 1,000 ML IV PRN (12:24)
[2018-01-25] MEDS: VANCOMYCIN HCL 750 MG in DEXTROSE 5%-WATER 250 ML IV SCH (13:45)
--- NOTE | 2018-01-25 14:29 | RADIOLOGY REPORT (SQ) ---
EXAM DESCRIPTION: CT CHEST WITHOUT COMPLETED DATE/TIME: 01/25/2018 1:14 pm REASON FOR STUDY: Multifocal pneumonia COMPARISON: 01/21/2018 TECHNIQUE: CT scan performed of the chest without intravenous contrast. Images reviewed with lung, soft tissue and bone windows. Reconstructed coronal and sagittal MPR images reviewed. All images st ored on PACS. All CT scanners at this facility use dose modulation, iterative reconstruction, and/or weight based d osing when appropriate to reduce radiation dose to as low as reasonably achievable (ALARA). [facility]: Dose Right [facility]: CareDose [facility]: Dose Right [facility]: Teradose 4D [facility]: Smart [employer] RADIATION DOSE: CT Rad equipment meets quality standard of care and radiation dose reduction techniq ues were employed. CTDIvol: 15.2 mGy. DLP: 514 mGy-cm. mGy. LIMITATIONS: No technical limitations. FINDINGS: LUNGS AND PLEURA: The previously described multiple bilateral patchy ground-glass opacitie s and diffuse septal thickening demonstrates minimal interval improvement as compared to the previous study. Fairly extensive residual changes are identified. The previously described trace bilateral pleural effusions appear decreased in size. HILAR AND MEDIASTINAL STRUCTURES: Prominent mediastinal lymph nodes are again identified. HEART AND VASCULAR STRUCTURES: No aneurysm. No pericardial effusion. Again there is apparent dilata tion of the main pulmonary artery. UPPER ABDOMEN: No significant findings. Limited exam. THYROID AND OTHER SOFT TISSUES: No masses. No adenopathy. BONES: Previously described degenerative changes are stable P HARDWARE: None in the chest. OTHER: No other significant findings. IMPRESSION: The previously described multiple bilateral patchy ground-glass opacities and diffuse se ptal thickening demonstrates minimal interval improvement as compared to the previous study. Fairly extensive residual changes are identified. Other findings as noted above. TECHNICAL DOCUMENTATION: JOB ID: [id number] Quality ID # [id number]: Final reports with documentation of one or more dose reduction techniques (e.g., Au tomated exposure control, adjustment of the mA and/or kV according to patient size, use of iterative reconstruction technique) 2010 [employer]- All Rights Reserved Reading location - IP/workstation name: [email or web address]
--- NOTE | 2018-01-25 16:29 | PDOC PROGRESS REPORT ---
Subjective Progress Note for:: 01/25/18 Subjective:: Patient has been doing well clinically but her white cell count bumped up from 15.5-17.8. Repeat CT scan reported minimal change in the diffuse bilateral patchy groundglass appearance. Reason For Visit: SEPSIS,UTI,ARF Physical Exam Vital Signs: Temp Pulse Resp BP Pulse Ox 98.1 F 79 16 116/50 L 92 01/25/18 09:21 01/25/18 14:00 01/25/18 10:37 01/25/18 09:21 01/25/18 10:37 Intake & Output 01/24/18 01/25/18 01/26/18 06:59 06:59 06:59 Intake Total 2165 3049 1509 Output Total 900 200 400 Balance 1265 2849 1109 Weight 92.3 kg 92.5 kg General appearance: PRESENT: no acute distress Mouth exam: PRESENT: moist Neck exam: ABSENT: carotid bruit, JVD, lymphadenopathy, thyromegaly Respiratory exam: PRESENT: crackles - Bilateral Cardiovascular exam: PRESENT: RRR. ABSENT: diastolic murmur, rubs, systolic murmur Neurological exam: PRESENT: alert, awake Results Laboratory Results: 01/25/18 09:19 01/25/18 10:03 01/25/18 01/25/18 09:19 10:03 WBC 17.8 H RBC 4.61 Hgb 13.1 Hct 39.3 MCV 85 MCH 28.3 MCHC 33.2 RDW 15.2 H Plt Count 217 Seg Neutrophils % 80.6 H Lymphocytes % 10.6 L Monocytes % 5.4 Eosinophils % 2.7 Basophils % 0.7 Absolute Neutrophils 14.3 H Absolute Lymphocytes 1.9 Absolute Monocytes 1.0 Absolute Eosinophils 0.5 Absolute Basophils 0.1 Sodium 134.9 L Potassium 4.1 Chloride 101 Carbon Dioxide 24 Anion Gap 10 BUN 27 H Creatinine 1.27 H Est GFR ( Amer) 49 L Est GFR (Non-Af Amer) 40 L Glucose 94 Calcium 8.2 L 01/16/18 01/16/18 01/17/18 20:45 20:45 03:05 Creatine Kinase 364 H CK-MB (CK-2) 2.41 1.36 Troponin I 0.021 0.022 NT-Pro-B Natriuret Pep 01/17/18 01/17/18 01/17/18 03:05 09:05 09:05 Creatine Kinase 342 H 264 H CK-MB (CK-2) 0.96 Troponin I 0.024 NT-Pro-B Natriuret Pep 01/18/18 01/18/18 01/18/18 16:12 16:12 22:17 Creatine Kinase 58 CK-MB (CK-2) 1.71 Troponin I 0.370 0.298 NT-Pro-B Natriuret Pep 01/22/18 04:51 Creatine Kinase CK-MB (CK-2) Troponin I NT-Pro-B Natriuret Pep 3010 H Impressions: Chest X-Ray 01/19/18 00:00 IMPRESSION: NO ACUTE RADIOGRAPHIC FINDING IN THE CHEST. Chest CT 01/25/18 00:00 IMPRESSION: The previously described multiple bilateral patchy ground-glass opacities and diffuse septal thickening demonstrates minimal interval improvement as compared to the previous study. Fairly extensive residual changes are identified. Other findings as noted above. Assessment & Plan - Diagnosis (1) Gram-negative bacteremia and sepsis Is this a current diagnosis for this admission?: Yes Plan: Continue vancomycin and cefepime. (2) Suspected healthcare associated pneumo Is this a current diagnosis for this admission?: Yes Plan: Continue vancomycin and cefepime. (3) UTI (urinary tract infection) Qualifiers: Indwelling urinary catheter type: unspecified Is this a current diagnosis for this admission?: Yes Plan: Continue cefepime (4) KAMI (acute kidney injury) Is this a current diagnosis for this admission?: Yes Plan: Has resolved. (5) Leukocytosis Qualifiers: Leukocytosis type: unspecified Qualified Code(s): D72.829 - Elevated white blood cell count, unspecified Is this a current diagnosis for this admission?: Yes Plan: Slightly trending up (6) Troponin level elevated Is this a current diagnosis for this admission?: Yes Plan: Due to sepsis (7) Hypothyroidism Is this a current diagnosis for this admission?: Yes Plan: Continue Synthroid (8) Depression Qualifiers: Major depression episode severity: unspecified Is this a current diagnosis for this admission?: Yes Plan: Continue her home medications.
[2018-01-25] MEDS: AMITRIPTYLINE HCL 25 MG TABLET PO SCH (22:08)
[2018-01-25] MEDS: ATORVASTATIN CALCIUM 20 MG TABLET PO SCH (22:08)
[2018-01-25] MEDS: POLYETHYLENE GLYCOL 3350 POWDER 17 GM/1 PACKET PO SCH (22:09)
[2018-01-25] MEDS: MELATONIN 3 MG TABLET PO SCH (23:12)
[2018-01-26] MEDS: PIPERACILLIN SODIUM/TAZOBACTAM 3.375 GM in NORMAL SALINE 100 ML IV SCH ×5 (00:52→23:45)
[2018-01-26] MEDS: BENZONATATE 100 MG CAPSULE PO SCH ×3 (06:27→22:06)
[2018-01-26] MEDS: CALCIUM CARBONATE 250 MG/VITAMIN D3 125 UNIT TABLET PO SCH (09:47)
[2018-01-26] MEDS: ASPIRIN 81 MG TABLET, ENT COATED PO SCH (09:47)
[2018-01-26] MEDS: FUROSEMIDE 20 MG TABLET PO SCH (09:47)
[2018-01-26] MEDS: ESCITALOPRAM OXALATE 10 MG TABLET PO SCH (09:47)
[2018-01-26] MEDS: BUPROPION HCL 75 MG TABLET PO SCH ×2 (11:41→22:06)
[2018-01-26] MEDS: VANCOMYCIN HCL 750 MG in DEXTROSE 5%-WATER 250 ML IV SCH (13:53)
[2018-01-26] MEDS: MELATONIN 3 MG TABLET PO SCH (22:06)
[2018-01-26] MEDS: ATORVASTATIN CALCIUM 20 MG TABLET PO SCH (22:06)
[2018-01-26] MEDS: AMITRIPTYLINE HCL 25 MG TABLET PO SCH (22:06)
[2018-01-26] MEDS: POLYETHYLENE GLYCOL 3350 POWDER 17 GM/1 PACKET PO SCH (22:07)
[2018-01-26] MEDS: NORMAL SALINE 1000 ML 1,000 ML IV PRN (23:46)
[2018-01-27] MEDS: BENZONATATE 100 MG CAPSULE PO SCH (05:38)
[2018-01-27] MEDS: PIPERACILLIN SODIUM/TAZOBACTAM 3.375 GM in NORMAL SALINE 100 ML IV SCH ×2 (05:38→11:51)
[2018-01-27 05:51] LABS: ABSOLUTE BASOPHILS # (AUTO) 0.1 10^3/uL (0.0-0.2); ABSOLUTE EOSINOPHILS # (AUTO) 0.6 10^3/uL (0.0-0.6); ABSOLUTE LYMPHOCYTES (AUTO) 2.2 10^3/uL (0.5-4.7); ABSOLUTE MONOCYTES (AUTO) 1.3 10^3/uL (0.1-1.4); ABSOLUTE NEUT (AUTO) 12.5 10^3/uL (1.7-8.2); BASOPHILS % (AUTO) 0.5 % (0-2); EOSINOPHILS % (AUTO) 3.6 % (0-6); HEMATOCRIT 38.5 % (36.0-47.0); HEMOGLOBIN 12.8 g/dL (12.0-15.5); LYMPHOCYTES % (AUTO) 13.1 % (13-45); MEAN CORPUSCULAR HEMOGLOBIN 28.5 pg (27.0-33.4); MEAN CORPUSCULAR HGB CONC 33.4 g/dL (32.0-36.0); MEAN CORPUSCULAR VOLUME 85 fl (80-97); MONOCYTES % (AUTO) 7.7 % (3-13); PLATELET COUNT 243 10^3/uL (150-450); RED BLOOD COUNT 4.51 10^6/uL (3.72-5.28); RED CELL DISTRIBUTION WIDTH 15.1 % (11.5-14.0); SEGMENTED NEUTROPHILS % (AUTO) 75.1 % (42-78); TOTAL CELLS COUNTED % (AUTO) 100 %; WHITE BLOOD COUNT 16.6 10^3/uL (4.0-10.5)
[2018-01-27 06:14] LABS: ANION GAP 11 (5-19); BLOOD UREA NITROGEN 19 mg/dL (7-20); CARBON DIOXIDE 26 mmol/L (22-30); CHLORIDE 101 mmol/L (98-107); GLUCOSE 81 mg/dL (75-110); POTASSIUM 3.3 mmol/L (3.6-5.0); SODIUM 138.2 mmol/L (137-145)
[2018-01-27] MEDS: CALCIUM CARBONATE 250 MG/VITAMIN D3 125 UNIT TABLET PO SCH (09:55)
[2018-01-27] MEDS: ASPIRIN 81 MG TABLET, ENT COATED PO SCH (09:56)
[2018-01-27] MEDS: ESCITALOPRAM OXALATE 10 MG TABLET PO SCH (09:56)
[2018-01-27] MEDS: FUROSEMIDE 20 MG TABLET PO SCH (09:56)
--- NOTE | 2018-01-27 11:10 | PDOC DISCHARGE SUMMARY ---
General - Admit/Disc Date/PCP Admission Date/Primary Care Provider: 01/16/18 17:07 Discharge Date: 01/27/18 - Discharge Diagnosis (1) Gram-negative bacteremia and sepsis Is this a current diagnosis for this admission?: Yes (2) Suspected healthcare associated pneumo Is this a current diagnosis for this admission?: Yes (3) UTI (urinary tract infection) Is this a current diagnosis for this admission?: Yes (4) KAMI (acute kidney injury) Is this a current diagnosis for this admission?: Yes (5) Leukocytosis Is this a current diagnosis for this admission?: Yes (6) Troponin level elevated Is this a current diagnosis for this admission?: Yes (7) Hypothyroidism Is this a current diagnosis for this admission?: Yes (8) Depression Is this a current diagnosis for this admission?: Yes - Additional Information Resuscitation Status: Do Not Resuscitate Home Medications: Acebutolol HCl [Sectral 200 Mg Capsule] 400 mg PO BID 01/16/18 Acetaminophen [Tylenol Extra Strength] 1,000 mg PO BIDP PRN 01/16/18 Amitriptyline HCl 25 mg PO QHS 01/16/18 Calcium Carbonate/Vitamin D3 [Calcium 600 + Vit D 400 Tablet] 1 tab PO DAILY Escitalopram Oxalate [Lexapro] 10 mg PO DAILY 01/16/18 Levothyroxine Sodium 125 mcg PO Q6AM 01/16/18 Lisinopril/Hydrochlorothiazide [Lisinopril-Hctz 10-12.5 mg Tab] 1 each PO DAILY 01/16/18 Polyethylene Glycol 3350 [Miralax Powder 17 gm/Packet] 1 packet PO DAILY Pravastatin Sodium 40 mg PO DAILY 01/16/18 Bupropion HCl [Wellbutrin Xl 300mg 24hr Tablet] 300 mg PO DAILY 01/17/18 Melatonin [Melatonin 3 mg Tablet] 3 mg PO QHS 01/17/18 History of Present Illness History of Present Illness: JENNY TERRY is a 82 year old female with history of HTN and depression who presents with worsening urinary symptoms, weakness, and decreased PO intake. Patient states that a few weeks ago she developed urinary frequency and dysuria. Her son gave her cranberry juice over this time period. Feels that her symptoms were improved. However over the last 48 hours, states that she got progressively weaker. Had poor PO intake, chils, and inability to ambulate. States that dysuria has gotten worse. Denies blood in her urine. Also no fevers , CP, SOB, abdominal pain, NV. patient does not have history of frequent/ recurrent UTIs. Of note patients 2 weeks ago. States that her mood is OK and she is coping as well as she can. Daughter and son in law at bedside. Admitted to [facility] under hospitalist care. Hospital Course Hospital Course: JENNY TERRY is a 82 year old female with history of HTN and depression who presents with worsening urinary symptoms, weakness, and decreased PO intake. Her initial blood work shows mild acute kidney injury for which she was managed with gentle hydration and gradually her creatinine has been trending down. Her urinalysis indicative of urinary tract infection which is also further confirmed by urine culture positive for E. coli. Her blood culture also positive for E. coli which is pansensitive. So patient has been treated for sepsis of urinary tract origin with ceftriaxone. Her hospital course is complicated by shortness of brace cough and low-grade fever. Her leukocytosis also get worse. At this point CT scan of the chest without contrast requested and it is reported as bilateral patchy ground-glass opacities which may represent multifocal pneumonia, pulmonary edema or pulmonary hemorrhage. Patient empirically treated with cefepime which is later switched to Zosyn and IV vancomycin. Her leukocytosis is trending down and patient shows marked clinical improvement over the last several 3 days. Since patient is debilitated and conditions she qualifies for home health and physical therapy. I will continue all her home medications and I will add for her cholecalciferol 2000 international units p.o. daily. Her vital signs are stable and her blood works are relatively normal. Patient is stable enough to be discharged. Physical Exam Vital Signs: Temp Pulse Resp BP Pulse Ox 98.2 F 65 16 154/53 H 94 01/27/18 07:51 01/27/18 07:51 01/27/18 07:51 01/27/18 07:51 01/27/18 07:51 Intake & Output 01/26/18 01/27/18 01/28/18 06:59 06:59 06:59 Intake Total 3670 4357 Output Total 400 3700 Balance 3270 657 Weight 80.9 kg 79.8 kg General appearance: PRESENT: no acute distress Head exam: PRESENT: atraumatic Eye exam: PRESENT: conjunctiva pink Mouth exam: PRESENT: moist Respiratory exam: PRESENT: decreased breath sounds, rales Cardiovascular exam: PRESENT: RRR. ABSENT: diastolic murmur, rubs, systolic murmur GI/Abdominal exam: PRESENT: normal bowel sounds, soft. ABSENT: distended, guarding, mass, organolmegaly, rebound, tenderness Extremities exam: PRESENT: full ROM. ABSENT: calf tenderness, clubbing, pedal edema Neurological exam: PRESENT: alert, awake, oriented to time, oriented to situation Psychiatric exam: PRESENT: normal mood Results Laboratory Results: 01/27/18 05:28 01/27/18 05:28 01/27/18 01/27/18 05:28 05:28 WBC 16.6 H RBC 4.51 Hgb 12.8 Hct 38.5 MCV 85 MCH 28.5 MCHC 33.4 RDW 15.1 H Plt Count 243 Seg Neutrophils % 75.1 Lymphocytes % 13.1 Monocytes % 7.7 Eosinophils % 3.6 Basophils % 0.5 Absolute Neutrophils 12.5 H Absolute Lymphocytes 2.2 Absolute Monocytes 1.3 Absolute Eosinophils 0.6 Absolute Basophils 0.1 Sodium 138.2 Potassium 3.3 L Chloride 101 Carbon Dioxide 26 Anion Gap 11 BUN 19 Creatinine 1.32 H Est GFR ( Amer) 47 L Est GFR (Non-Af Amer) 39 L Glucose 81 Calcium 8.0 L 01/21/18 23:00 Blood Blood Culture - Final NO GROWTH IN 5 DAYS 01/21/18 11:39 Blood Blood Culture - Final NO GROWTH IN 5 DAYS 01/16/18 01/16/18 01/17/18 20:45 20:45 03:05 Creatine Kinase 364 H CK-MB (CK-2) 2.41 1.36 Troponin I 0.021 0.022 NT-Pro-B Natriuret Pep 01/17/18 01/17/18 01/17/18 03:05 09:05 09:05 Creatine Kinase 342 H 264 H CK-MB (CK-2) 0.96 Troponin I 0.024 NT-Pro-B Natriuret Pep 01/18/18 01/18/18 01/18/18 16:12 16:12 22:17 Creatine Kinase 58 CK-MB (CK-2) 1.71 Troponin I 0.370 0.298 NT-Pro-B Natriuret Pep 01/22/18 04:51 Creatine Kinase CK-MB (CK-2) Troponin I NT-Pro-B Natriuret Pep 3010 H Impressions: Chest X-Ray 01/19/18 00:00 IMPRESSION: NO ACUTE RADIOGRAPHIC FINDING IN THE CHEST. Chest CT 01/25/18 00:00 IMPRESSION: The previously described multiple bilateral patchy ground-glass opacities and diffuse septal thickening demonstrates minimal interval improvement as compared to the previous study. Fairly extensive residual changes are identified. Other findings as noted above. Qualifiers - * PATIENT BEING DISCHARGED WITH ANY OF THE FOLLOWING DIAGNOSIS: No
[2018-01-27] MEDS: BUPROPION HCL 75 MG TABLET PO SCH (11:56)
[2018-01-27] MEDS ORDERED: POTASSIUM CHLORIDE 10 MEQ CAPSULE.ER PO ONE (12:00)
[2018-01-27] MEDS ORDERED: CHOLECALCIFEROL (D3) 1,000 UNIT TABLET PO SCH (12:15)
[2018-01-27 12:47] VITALS: BP 138/52
== END 2018-01-27 13:41 | disposition home health service (06) | DRG 871 ==
LOC: ER 13:51 → EH 17:07 → 3N 18:30 → 3S 01-25 19:15
PROVIDERS: ADMIT Student in an Organized Health Care Education/Training Program; ATTEND Student in an Organized Health Care Education/Training Program
DX: A41.51 Sepsis due to Escherichia coli [E. coli] (principal); J18.9 Pneumonia, unspecified organism; N39.0 Urinary tract infection, site not specified; N17.9 Acute kidney failure, unspecified; I50.32 Chronic diastolic (congestive) heart failure; I11.0 Hypertensive heart disease with heart failure; D69.59 Other secondary thrombocytopenia; D72.829 Elevated white blood cell count, unspecified; E03.9 Hypothyroidism, unspecified; R74.8 Abnormal levels of other serum enzymes; F32.9 Major depressive disorder, single episode, unspecified; E78.5 Hyperlipidemia, unspecified; Z96.653 Presence of artificial knee joint, bilateral; Z98.51 Tubal ligation status; Z79.899 Other long term (current) drug therapy; K21.9 Gastro-esophageal reflux disease without esophagitis; M10.9 Gout, unspecified
CPT/HCPCS: 36415; 51701; 71045; 71250; 80048; 80053; 80061; 80202; 81001; 82550; 82553; 82565; 82803; 83605; 83735; 83880; 84100; 84484; 85025; 87040; 87077; 87086; 87088; 87186; 87493; 88184; 88185; 93005; 93010; 93306; 94640; 94799; 96365; 99291; G8978-GP; G8979-GP; J0692; J0696; J1335; J1940; J2543; J3370; J3490; J7030; J7060; J7620

== ENCOUNTER 2019-10-24 13:51 | Emergency (ER) | payer MEDICARE, OTHER ==
--- NOTE | 2019-10-24 14:13 | ER Document Report ---
ED General - General Chief Complaint: Syncope Stated Complaint: SYNCOPE Time Seen by Provider: 10/24/19 14:12 Mode of Arrival: Medic Information source: Patient TRAVEL OUTSIDE OF THE [place] IN LAST 30 DAYS: No - HPI Onset: Other - earlier in the days Onset/Duration: Sudden Quality of pain: No pain Severity: Moderate Pain Level: Denies Associated symptoms: Weakness, Other - Dizziness Exacerbated by: Denies Relieved by: Denies Similar symptoms previously: No Recently seen / treated by doctor: No Notes: 83 year old female with a history of HTN, HLD, CHF, Hypothyroidism brought in by EMS for a syncopal event. The patient went to the bathroom and and became dizzy. When in the bathroom, the patient passed out. The patient denies chest pain, trouble breathing, shortness of breath before passing out. The patient has never passed out before. The patient feels pretty well now and she denies any trauma from passing out. The patient was hypotensive for EMS (90s/50s). The patient was also hypotensive on ER arrival. The patient denies recent fevers, chills, sweats, nausea, vomiting, diarrhea. The patient denies known sick contacts. - Related Data Allergies/Adverse Reactions: No Known Allergies Allergy (Verified 01/16/18 14:34) Past Medical History - General Information source: Patient - Social History Smoking Status: Never Smoker Frequency of alcohol use: None Drug Abuse: None Family History: Hypertension Patient has suicidal ideation: No Patient has homicidal ideation: No - Past Medical History Cardiac Medical History: Reports: Hx Congestive Heart Failure - Question of CHF, Hx Hypercholesterolemia, Hx Hypertension Endocrine Medical History: Reports: Hx Hypothyroidism Renal/ Medical History: Denies: Hx Peritoneal Dialysis GI Medical History: Reports: Hx Gastroesophageal Reflux Disease Musculoskeletal Medical History: Reports Hx Gout Psychiatric Medical History: Reports: Hx Depression Past Surgical History: Reports: Hx Orthopedic Surgery - Bilateral total knee replacement, Hx Tubal Ligation, Other - Hysterectomy Review of Systems - Review of Systems Constitutional: No symptoms reported EENT: No symptoms reported Cardiovascular: Syncope, Dizziness, Lightheaded Respiratory: No symptoms reported Gastrointestinal: No symptoms reported Genitourinary: No symptoms reported Female Genitourinary: No symptoms reported Musculoskeletal: No symptoms reported Skin: No symptoms reported Hematologic/Lymphatic: No symptoms reported Neurological/Psychological: No symptoms reported -: Yes All other systems reviewed and negative Physical Exam - Vital signs Vitals: Resp BP Pulse Ox 13 96/56 L 96 10/24/19 13:59 10/24/19 13:59 10/24/19 13:59 - Notes Notes: GENERAL: Well-appearing, well-nourished and in no acute distress. HEAD: Atraumatic, normocephalic. EYES: Pupils equal round and reactive to light, extraocular movements intact, sclera anicteric, conjunctiva are normal. ENT: TMs normal, nares patent, oropharynx clear without exudates. Moist mucous membranes. NECK: Normal range of motion, supple without lymphadenopathy or JVD. LUNGS: Breath sounds clear to auscultation bilaterally and equal. No wheezes rales or rhonchi. HEART: Regular rate and rhythm without murmurs, rubs or gallops. ABDOMEN: Soft, nontender, normoactive bowel sounds. No guarding, no rebound. No masses appreciated. EXTREMITIES: Normal range of motion, no pitting or edema. No clubbing or cyanosis. NEUROLOGICAL: Cranial nerves II through XII grossly intact. Normal speech, n ormal gait. PSYCH: Normal mood, normal affect. SKIN: Warm, Dry, normal turgor, no rashes or lesions noted. Course - Re-evaluation Re-evalutation: 10/24/19 18:07 The patient was brought to the ER by EMS due to a syncopal event. The patient was hypotensive with EMS and she exhibited orthostatic hypotension here in the ER as well. The patient is on a long acting nitrate, HCTZ, and Lisinopril/HCTZ (this doesnt make much sense to me). The patient has not been having infectious symptoms (no fevers, chills, sweats, cough, urinary symptoms, diarrhea, nausea, vomiting). Patient's chest xray showed possible mild edema but patient's BNP was not very elevated. Patient had a head CT showing no acute process. (this was done to look for trauma and to evaluate for possible stroke). Patient was given some IV fluids here in the ER due to her degree of orthostatic hypotension. Patient and her son (who I called) were told to hold her blood pressure medications until her blood pressures normalize. Patient apparently has a primary care appointment next week which works out well. If patient did not have orthostatic hypotension, admission for syncope work up would have been reasonable. - Vital Signs Vital signs: Temp Pulse Resp BP Pulse Ox 97.7 F 59 L 15 108/89 H 97 10/24/19 14:02 10/24/19 16:32 10/24/19 17:01 10/24/19 17:01 10/24/19 17:01 - Laboratory Result Diagrams: 10/24/19 14:15 10/24/19 14:15 Laboratory results interpreted by me: 10/24/19 10/24/19 10/24/19 14:15 14:15 16:55 RDW 15.3 H Sodium 133.2 L Carbon Dioxide 32 H Anion Gap 1 L BUN 25 H Est GFR ( Amer) 52 L Est GFR (MDRD) Non-Af 43 L Glucose 114 H Calcium 8.3 L AST 158 H ALT 66 H Alkaline Phosphatase 222 H Creatine Kinase < 20 L Total Protein 5.0 L Albumin 2.2 L Urine Protein 30 H Urine Urobilinogen 2.0 H Urine Ascorbic Acid 40 H - Diagnostic Test Radiology reviewed: Image reviewed, Reports reviewed - EKG Interpretation by Me EKG shows normal: Sinus rhythm, Intervals, QRS Complexes, ST-T Waves Rate: Normal Rhythm: NSR [place]/QRS: Left axis deviation Discharge - Discharge Clinical Impression: Orthostatic hypotension Syncope Qualifiers: Syncope type: unspecified Qualified Code(s): R55 - Syncope and collapse Condition: Stable Disposition: HOME, SELF-CARE Instructions: Orthostatic Hypotension ([facility]), Syncopal Episode ([facility]) Additional Instructions: Drink plenty of fluids in the days to come. Follow up with your primary care doctor and go over your list of medications (specifically ones that affect your blood pressure). Tell your doctor about your passing out episode. You had blood work in the ER, a chest Xray, a head CT, and a urine analysis. You will be called by a resource nurse if your urine culture is positive in the next few days.
[2019-10-24 14:35] LABS: ABSOLUTE BASOPHILS # (AUTO) 0.1 10^3/uL (0.0-0.2); ABSOLUTE EOSINOPHILS # (AUTO) 0.3 10^3/uL (0.0-0.6); ABSOLUTE LYMPHOCYTES (AUTO) 2.1 10^3/uL (0.5-4.7); ABSOLUTE MONOCYTES (AUTO) 0.6 10^3/uL (0.1-1.4); ABSOLUTE NEUT (AUTO) 6.2 10^3/uL (1.7-8.2); BASOPHILS % (AUTO) 0.9 % (0-2); EOSINOPHILS % (AUTO) 3.4 % (0-6); HEMOGLOBIN 13.1 g/dL (12.0-15.5); LYMPHOCYTES % (AUTO) 22.2 % (13-45); MEAN CORPUSCULAR HGB CONC 33.6 g/dL (32.0-36.0); MEAN CORPUSCULAR VOLUME 89 fl (80-97); MONOCYTES % (AUTO) 6.6 % (3-13); PLATELET COUNT 200 10^3/uL (150-450); RED BLOOD COUNT 4.36 10^6/uL (3.72-5.28); RED CELL DISTRIBUTION WIDTH 15.3 % (11.5-14.0); SEGMENTED NEUTROPHILS % (AUTO) 66.9 % (42-78); TOTAL CELLS COUNTED % (AUTO) 100 %; WHITE BLOOD COUNT 9.3 10^3/uL (4.0-10.5)
[2019-10-24 14:49] LABS: ALBUMIN 2.2 g/dL (3.5-5.0); ALKALINE PHOSPHATASE 222 U/L (38-126); ASPARTATE AMINO TRANSFERASE 158 U/L (14-36); BILIRUBIN,DIRECT 0.2 mg/dL (0.0-0.4); BILIRUBIN,TOTAL 0.8 mg/dL (0.2-1.3); BLOOD UREA NITROGEN 25 mg/dL (7-20); CALCIUM 8.3 mg/dL (8.4-10.2); CHLORIDE 100 mmol/L (98-107); GLUCOSE 114 mg/dL (75-110); POTASSIUM 4.1 mmol/L (3.6-5.0)
[2019-10-24 14:51] LABS: CREATINE KINASE < 20 U/L (30-135)
[2019-10-24 14:54] LABS: CARBON DIOXIDE 32 mmol/L (22-30)
[2019-10-24 14:56] LABS: ANION GAP 1 (5-19)
[2019-10-24 15:01] LABS: CREATINE KINASE MB 0.25 ng/mL (<4.55)
[2019-10-24 15:02] LABS: TROPONIN I < 0.012 ng/mL
--- NOTE | 2019-10-24 15:58 | RADIOLOGY REPORT (SQ) ---
EXAM DESCRIPTION: CHEST 2 VIEWS IMAGES COMPLETED DATE/TIME: 10/24/2019 3:46 pm REASON FOR STUDY: eval for pneumonia COMPARISON: None. EXAM PARAMETERS: NUMBER OF VIEWS: two views TECHNIQUE: Digital Frontal and Lateral radiographic views of the chest acquired. RADIATION DOSE: NA LIMITATIONS: none FINDINGS: LUNGS AND PLEURA: With prominent bilateral interstitial perihilar opacities with more foca l left lower lobe patchy opacities. No significant effusion. No pneumothorax. MEDIASTINUM AND HILAR STRUCTURES: Perihilar opacities. No discrete mass. HEART AND VASCULAR STRUCTURES: Enlarged cardiac silhouette. Aortic atherosclerosis. BONES: No acute findings. Serpiginous thoracolumbar curvature. HARDWARE: None in the chest. OTHER: No other significant finding. IMPRESSION: Enlarged cardiac silhouette with prominent perihilar interstitial opacities, likely carmen a. More focal patchy left basilar opacities possibly asymmetric edema or superimposed pneumonia. TECHNICAL DOCUMENTATION: JOB ID: [id number] 2010 [employer]- All Rights Reserved Reading location - IP/workstation name: [email or web address]
--- NOTE | 2019-10-24 16:04 | RADIOLOGY REPORT (SQ) ---
EXAM DESCRIPTION: CT HEAD WITHOUT IMAGES COMPLETED DATE/TIME: 10/24/2019 3:43 pm REASON FOR STUDY: altered mental status. syncope and fall COMPARISON: None. TECHNIQUE: Axial images acquired through the brain without intravenous contrast. Images reviewed wi th bone, brain and subdural windows. Additional sagittal and coronal reconstructions were generated. Images stored on PACS. All CT scanners at this facility use dose modulation, iterative reconstruction, and/or weight based d osing when appropriate to reduce radiation dose to as low as reasonably achievable (ALARA). [facility]: Dose Right [facility]: CareDose [facility]: Dose Right [facility]: Teradose 4D [facility]: Smart [employer] RADIATION DOSE: CT Rad equipment meets quality standard of care and radiation dose reduction techniq ues were employed. CTDIvol: 53.2 mGy. DLP: 937 mGy-cm.mGy. LIMITATIONS: None. FINDINGS: VENTRICLES: Prominent. CEREBRUM: No masses. No hemorrhage. No midline shift. Areas of low density in the white matter mos t likely due to chronic micro-vascular ischemic change. No evidence for acute infarction. CEREBELLUM: No masses. No hemorrhage. No alteration of density. No evidence for acute infarction. EXTRAAXIAL SPACES: Age-related involutional change. No fluid collections. No masses. ORBITS AND GLOBE: No intra- or extraconal masses. Normal contour of globe without masses. CALVARIUM: No fracture. PARANASAL SINUSES: No fluid or mucosal thickening. SOFT TISSUES: No mass or hematoma. OTHER: Minimal fluid in the right mastoid air cells. IMPRESSION: 1. Chronic atrophy and small vessel disease. 2. Mild right mastoid effusion. 3. No acute intracranial abnormality otherwise noted. EVIDENCE OF ACUTE STROKE: NO. TECHNICAL DOCUMENTATION: JOB ID: [id number] Quality ID # [id number]: Final reports with documentation of one or more dose reduction techniques (e.g., Au tomated exposure control, adjustment of the mA and/or kV according to patient size, use of iterative reconstruction technique) 2010 [employer]- All Rights Reserved Reading location - IP/workstation name: [email or web address]
[2019-10-24] MEDS ORDERED: NORMAL SALINE 1000 ML 1,000 ML IV ONE (17:07)
[2019-10-24 17:23] LABS: APPEARANCE,URINE SLIGHTLY-CLOUDY; BILIRUBIN,URINE NEGATIVE (NEGATIVE); COLOR,URINE AMBER; GLUCOSE, URINE NEGATIVE (NEGATIVE); KETONES,URINE NEGATIVE (NEGATIVE); LEUKOCYTE ESTERASE,URINE NEGATIVE (NEGATIVE); NITRITE,URINE NEGATIVE (NEGATIVE); PROTEIN,URINE 30 mg/dL (NEGATIVE)
[2019-10-24 18:12] VITALS: BP 115/77
--- NOTE | 2019-10-25 07:27 | EKG REPORT ---
SEVERITY:- OTHERWISE NORMAL ECG - SINUS RHYTHM BORDERLINE LEFT AXIS DEVIATION : Confirmed by: Kierra Rodriguez 25-Oct-2019 07:26:26
== END 2019-10-24 18:35 | disposition home or self-care (01) ==
LOC: ER 13:51
DX: I95.1 Orthostatic hypotension (principal); R42 Dizziness and giddiness; E78.5 Hyperlipidemia, unspecified; I11.0 Hypertensive heart disease with heart failure; I50.9 Heart failure, unspecified; E03.9 Hypothyroidism, unspecified; W19.XXXA Unspecified fall, initial encounter; Y92.89 Other specified places as the place of occurrence of the external cause
CPT/HCPCS: 93005; 99284; 96360; 36415; 87086; 82553; 82550; 84443; 85025; 80053; 81001; 84484; 83880; 71046; 70450; 93010; J7030